=== PATIENT | female | born 1950 | race Caucasian/White ===

== ENCOUNTER → 2017-07-17 | Day surgery (SDC) | payer OTHER ==
[~2017-07-17] VITALS: Ht 161.3 cm; Wt 71.0 kg
[~2017-07-17] MED LIST: *morphine SULFATE 8 MG/ML PERIprocedure ONLY ONE; ALLO300T2 PO; CARV6.252 PO; CARVEDILOL 6.25 MG TAB PO ONE; CHLORHEXIDINE GLUCONATE 2 % 1 PACK (2 CLOTHS) TOPICAL PRN; DEXAMETHASONE SOD PHOS 4 MG/ML VIAL IV ONE; DO NOT ADM ANY ANTICOAGULANT DRUGS PRN; INSULIN HUMAN REGULAR 1,000 UNITS/10 ML VIAL SQ PRN; KETOROLAC TROMETHAMINE 30 MG/ML (IVP) VIAL IV PUSH PRN; LACTATED RINGER'S 1000 ML IV PRN; LIDOCAINE 1%/EPINEPHrine 1:100,000 SOLN 50 ML VIAL ONE; LIDOCAINE HCL 1% PF 5 ML SYRINGE OTHER ONE; LISI10TA3 PO; METF1000 PO; METOPROLOL TARTRATE 25 MG TAB PO PRN; MIDAZOLAM HCL 2 MG/2 ML VIAL IV ONE; MULT1TAB46 PO; NOVOLOGP2 SQ; ONDANSETRON HCL 4 MG/2 ML VIAL IV PUSH ONE; OXYB5TAB8 PO; POVIDONE IODINE 5% (ANTISEPSIS KIT) 4 APPLICATIONS EACH NARE PRN; PROPOFOL 200 MG/20 ML AMP IV ONE; SODIUM CHLORID 0.9% 500 ML IV PRN
[2017-07-17 10:17] VITALS: BP 120/59; PULSE 74; RESP 18; TEMP 97.5; O2SAT 95
--- NOTE | 2017-07-17 22:05 | MP ---
cc: CLEMENTINA DEVRIES MD, KELLY L. MD BROOKS,TING Otero M.D. DATE OF SURGERY: 07/17/2017 PREOPERATIVE DIAGNOSIS: 1. Vulvar mass suspicious for malignancy. 2. Extensive groin and pelvic adenopathy bilateral. POSTOPERATIVE DIAGNOSIS 1. 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 2. Extensive bilateral groin and pelvic adenopathy. PROCEDURE Examination under anesthesia, multiple vulvar biopsies, cystoscopy. SURGEON Radha Reeves MD. SENIOR ELECT[employer]ICS ENGINEER [place] bilingual office assistant. ANESTHESIA: Laryngeal mask anesthesia ESTIMATED BLOOD LOSS 20 cc HISTORY This is a 67-year-old female, who was recently referred to us after presenting to her caregivers with a mass-like effect on the vulva. The clinical evaluation suggested this was fairly advanced malignancy, although no biopsies were taken. CT scan imaging was obtained which showed an exophytic and necrotic mass which was consistent with clinical findings and also showed bilateral significant groin adenopathy as well as suspicious pelvic adenopathy. She was seen where she was counseled in conjunction with her family in the office and we scheduled her for this procedure today recommending exam under anesthesia. She is seen again in the preop holding area where findings are again reviewed. The objective is to clarify the diagnosis and to make treatment recommendations were reviewed. Questions were answered. She expressed good understanding and agreed. FINDINGS On exam under anesthesia there is appreciably enlarged lymph nodes in both groins, the largest of which is 4 cm palpable on the left side, 2 cm is the largest palpable lymph node on the right side. Almost the entire right vulva is replaced with an exophytic mass that is with central ulceration. It is at least 8 cm in greatest dimension. It extends clockwise from the 7 o'clock position on the right vulva were it replaces all of the right vulva and extends into the distal right vagina. It carries across the midline where it has replaced the clitoris and surrounding tissue with necrotic tumor and extended over to the left vulva where the tumor is smaller but nonetheless extends across the midline and down to the 2 o'clock position. The tumor ventrally extends to within approximately 1 cm of the urethra and continues towards the mons pubis centrally. The posterior vagina, anus and rectum are without visible or palpable abnormality on exam. There are some external hemorrhoids. On cystoscopy the bladder mucosa appears normal circumferentially. There is good efflux of urine through the ureteral ostia bilaterally. There is no mass or nodularity and no significant distortion to the bladder. Biopsies are obtained. Frozen section confirms clinical suspicion that this is an invasive squamous cell carcinoma and appears to be arising from the vulva. Additional findings forthcoming and is that she is scheduled for a PET CT scan which has not yet been obtained. This will also allow imaging of the lungs and elsewhere. PROCEDURE She was taken to the operating room placed in dorsal lithotomy position. After laryngeal mask anesthesia was administered time-out was undertaken. She was identified by sight, recognition and hospital ID pola, and the proposed procedure was reviewed and confirmed. Exam under anesthesia was performed with findings as described, after laryngeal mask anesthesia had been administered. Subsequently she was prepped and draped in sterile fashion, 3 mm punch biopsies were used to obtain multifocal biopsies from the left and right vulva, a sampling of which were sent for frozen section analysis, and additional biopsies were obtained for permanent analysis. The biopsy sites were rendered hemostatic with topical Monsel's solution. Cystoscopy was performed using a 30 degrees scope with findings as described above. The bladder was drained. Rectovaginal exam was performed with findings as described above. Proctosigmoidoscopy was not felt to be necessary given that the tumor was in no immediate her close proximity to the anus or rectum. A change of sterile gloves was undertaken. All sites were noted be hemostatic. Pelvic exam confirmed that there were no remaining foreign objects in the vagina and final counts were correct. She was returned to dorsal supine position and was pending reversal of anesthesia when I left the operating room to precede her to the Post Anesthesia Care Unit. MD VENKAT Campbell/QUE /12:35 PM /9:59 PM
== END | disposition home or self-care (01) ==
LOC: HSDC 05:13
PROVIDERS: ATTEND Obstetrics & Gynecology Gynecologic Oncology
DX: C51.9 Malignant neoplasm of vulva, unspecified (principal); R59.9 Enlarged lymph nodes, unspecified; E11.9 Type 2 diabetes mellitus without complications; M10.9 Gout, unspecified; Z79.84 Long term (current) use of oral hypoglycemic drugs
CPT/HCPCS: 00400; 56605; 56606; 82948; 86850; 86900; 86901; 88305; 88331; J1100; J2250; J2270; J2405; J3010; J7120

== ENCOUNTER 2017-10-25 10:40 | Inpatient (IN) | payer OTHER, MEDICARE ==
[2017-10-25] VITALS (7 sets, daily range): BP systolic 115–138; BP diastolic 57–69; PULSE 84–100; RESP 14–18; TEMP 97.9–98.7; O2SAT 96–100
[~2017-10-25] VITALS: Ht 167.6 cm; Wt 60.0 kg
[~2017-10-25 10:40] MED LIST changes: -*morphine SULFATE 8 MG/ML PERIprocedure ONLY ONE; -CARVEDILOL 6.25 MG TAB PO ONE; -CHLORHEXIDINE GLUCONATE 2 % 1 PACK (2 CLOTHS) TOPICAL PRN; -DEXAMETHASONE SOD PHOS 4 MG/ML VIAL IV ONE; -DO NOT ADM ANY ANTICOAGULANT DRUGS PRN; -INSULIN HUMAN REGULAR 1,000 UNITS/10 ML VIAL SQ PRN; -KETOROLAC TROMETHAMINE 30 MG/ML (IVP) VIAL IV PUSH PRN; -LACTATED RINGER'S 1000 ML IV PRN; -LIDOCAINE 1%/EPINEPHrine 1:100,000 SOLN 50 ML VIAL ONE; -LIDOCAINE HCL 1% PF 5 ML SYRINGE OTHER ONE; -METOPROLOL TARTRATE 25 MG TAB PO PRN; -MIDAZOLAM HCL 2 MG/2 ML VIAL IV ONE; -ONDANSETRON HCL 4 MG/2 ML VIAL IV PUSH ONE; -POVIDONE IODINE 5% (ANTISEPSIS KIT) 4 APPLICATIONS EACH NARE PRN; -PROPOFOL 200 MG/20 ML AMP IV ONE; -SODIUM CHLORID 0.9% 500 ML IV PRN
[2017-10-25] MEDS ORDERED: LEVA750T9 PO (11:27)
--- NOTE | 2017-10-25 11:28 | PD ---
HPI Chief Complaint: Respiratory Symptoms Time Seen by Provider: 11:23 Travel History International Travel<30 days: No Contact w/Intl Traveler<30days: No Traveled to known affect area: No History of Present Illness HPI 67-year-old female patient with a history of vulvar cancer currently following up with Dr. Reeves, here with 3 weeks of shortness of breath, sent in by the office. She denies any fevers, coughing, or other symptoms. Modifying Factors: None Associated Signs & Symptoms: 3 weeks of shortness of breath Risk Factors: Cancer PFSH Past Medical History Cancer: Yes (possibly working up) Cardiovascular Problems: Yes Chemotherapy: Yes Endocrine: No Genitourinary: No Hepatitis: No Hiatal Hernia: No Hypertension: Yes Immune Disorder: No Musculoskeletal: Yes Neurologic: No Psychiatric: Yes Respiratory: No Thyroid Disease: No Tetanus Vaccination: Unknown Influenza Vaccination: No ?: Past Surgical History Body Medical Devices: clamp and screw in neck and plate in neck Cardiac Surgery: Yes (heart cath) Ear Surgery: No Endocrine Surgery: No Eye Surgery: No Genitourinary Surgery: Yes (kidney stone removal) Gynecologic Surgery: Yes (hysterectomy) Hysterectomy: Yes Neurologic Surgery: Yes (cervical laminectomy c123) Oral Surgery: No Other Surgery: Yes Social History Alcohol Use: No Tobacco Use: No Substance Use: No Allergies-Medications (Allergen,Severity, Reaction): Coded Allergies: Penicillins (Verified Allergy, Severe, rash/hives, 10/25/17) Sulfa (Sulfonamide Antibiotics) (Verified Allergy, Severe, rash/hives, ) codeine (Verified Allergy, Severe, rash, 10/25/17) tramadol (Verified Allergy, Severe, itch/legs numb and she fell, 10/25/17) Reported Meds & Prescriptions Reported Meds & Active Scripts Active Reported Alprazolam 0.5 Mg Tab 0.5 Mg PO Q6H PRN Levaquin (Levofloxacin) 750 Mg Tablet 750 Mg PO DAILY Allopurinol 300 Mg Tab 450 Mg PO DAILY Carvedilol 6.25 Mg Tab 6.25 Mg PO BID Metformin (Metformin HCl) 1,000 Mg Tab 1,000 Mg PO BIDPC Novolog Inj (Insulin Aspart) 1,000 Unit/10 Ml Vial Units SQ TID SLIDING SCALE DIRECTED Review of Systems Except as stated in HPI: all other systems reviewed are Neg Physical Exam Narrative GENERAL: Elderly female patient who is well-developed, in moderate respiratory distress. Awake and oriented 3. SKIN: Focused skin assessment warm/dry. HEAD: Atraumatic. Normocephalic. EYES: Pupils equal and round. No scleral icterus. No injection or drainage. ENT: No nasal bleeding or discharge. Mucous membranes pink and moist. NECK: Trachea midline. No JVD. Supple. CARDIOVASCULAR: Regular rate and rhythm. No murmur appreciated. RESPIRATORY: Mild accessory muscle use. Clear to auscultation. Breath sounds equal bilaterally. GASTROINTESTINAL: Abdomen soft, non-tender, nondistended. Hepatic and splenic margins not palpable. MUSCULOSKELETAL: No obvious deformities. No clubbing. No cyanosis. No edema. NEUROLOGICAL: Awake and alert. No obvious cranial nerve deficits. Motor grossly within normal limits. Normal speech. PSYCHIATRIC: Appropriate mood and affect; insight and judgment normal. Data Data Last Documented VS Vital Signs Date Time Temp Pulse Resp B/P (MAP) Pulse Ox O2 Delivery O2 Flow Rate FiO2 10/25/17 15:09 89 18 128/61 (83) 97 Room Air 10/25/17 10:42 97.9 Orders Orders Complete Blood Count With Diff (10/25/17 11:23) Comprehensive Metabolic Panel (10/25/17 11:23) B-Type Natriuretic Peptide (10/25/17 11:23) Act Partial Throm Time (Ptt) (10/25/17 11:23) Prothrombin Time / Inr (Pt) (10/25/17 11:23) Magnesium (Mg) (10/25/17 11:23) Iv Access Insert/Monitor (10/25/17 11:23) Electrocardiogram (10/25/17 11:23) Ecg Monitoring (10/25/17 11:23) Oximetry (10/25/17 11:23) Oxygen Administration (10/25/17 11:23) Chest, Single Ap (10/25/17 11:23) Sodium Chloride 0.9% Flush (Ns Flush) (10/25/17 11:30) Dextrose 50% In Sumeet (Syr) Inj (D50w (Syr (10/25/17 12:15) Ventilation & Perfusion Scan (10/25/17 12:26) Sepsis Workup Initiated (10/25/17 ) Lactic Acid Sepsis Protocol (10/25/17 14:41) Blood Culture (10/25/17 14:41) Cefepime Inj (Maxipime Inj) (10/25/17 14:41) Admit Order (Ed Use Only) (10/25/17 15:28) Labs Laboratory Tests Test 10/25/17 11:35 10/25/17 14:45 White Blood Count 7.1 TH/MM3 Red Blood Count 2.96 MIL/MM3 Hemoglobin 8.5 GM/DL Hematocrit 24.3 % Mean Corpuscular Volume 81.9 FL Mean Corpuscular Hemoglobin 28.5 PG Mean Corpuscular Hemoglobin Concent 34.8 % Red Cell Distribution Width 25.9 % Platelet Count 253 TH/MM3 Mean Platelet Volume 7.1 FL Neutrophils (%) (Auto) 77.0 % Lymphocytes (%) (Auto) 9.8 % Monocytes (%) (Auto) 11.7 % Eosinophils (%) (Auto) 1.0 % Basophils (%) (Auto) 0.5 % Neutrophils # (Auto) 5.4 TH/MM3 Lymphocytes # (Auto) 0.7 TH/MM3 Monocytes # (Auto) 0.8 TH/MM3 Eosinophils # (Auto) 0.1 TH/MM3 Basophils # (Auto) 0.0 TH/MM3 CBC Comment AUTO DIFF Differential Total Cells Counted 100 Neutrophils % (Manual) 73 % Band Neutrophils % 3 % Lymphocytes % 10 % Monocytes % 12 % Neutrophils # (Manual) 5.5 TH/MM3 Myelocytes 2 % Differential Comment FINAL DIFF MANUAL Platelet Estimate NORMAL Platelet Morphology Comment NORMAL Prothrombin Time 11.4 SEC Prothromb Time International Ratio 1.1 RATIO Activated Partial Thromboplast Time 27.7 SEC Blood Urea Nitrogen 25 MG/DL Creatinine 1.97 MG/DL Random Glucose 60 MG/DL Total Protein 8.0 GM/DL Albumin 3.0 GM/DL Calcium Level 9.4 MG/DL Magnesium Level 1.7 MG/DL Alkaline Phosphatase 85 U/L Aspartate Amino Transf (AST/SGOT) 6 U/L Alanine Aminotransferase (ALT/SGPT) 7 U/L Total Bilirubin 0.3 MG/DL Sodium Level 134 MEQ/L Potassium Level 4.2 MEQ/L Chloride Level 103 MEQ/L Carbon Dioxide Level 22.2 MEQ/L Anion Gap 9 MEQ/L Estimat Glomerular Filtration Rate 25 ML/MIN B-Type Natriuretic Peptide 29 PG/ML MDM Medical Decision Making Medical Screen Exam Complete: Yes Emergency Medical Condition: Yes Medical Record Reviewed: Yes Interpretation(s) EKG shows normal sinus rhythm at a rate of 96 beats per minutes with no signs of acute ST changes. Laboratory Tests Test 10/25/17 11:35 10/25/17 14:45 Red Blood Count 2.96 MIL/MM3 (4.00-5.30) Hemoglobin 8.5 GM/DL (11.6-15.3) Hematocrit 24.3 % (35.0-46.0) Red Cell Distribution Width 25.9 % (11.6-17.2) Neutrophils (%) (Auto) 77.0 % (16.0-70.0) Monocytes (%) (Auto) 11.7 % (0.0-8.0) Lymphocytes # (Auto) 0.7 TH/MM3 (1.0-4.8) Neutrophils % (Manual) 73 % (16-70) Monocytes % 12 % (0-8) Myelocytes 2 % (0-0) Blood Urea Nitrogen 25 MG/DL (7-18) Creatinine 1.97 MG/DL (0.50-1.00) Random Glucose 60 MG/DL (74-106) Albumin 3.0 GM/DL (3.4-5.0) Aspartate Amino Transf (AST/SGOT) 6 U/L (15-37) Alanine Aminotransferase (ALT/SGPT) 7 U/L (10-53) Sodium Level 134 MEQ/L (136-145) Estimat Glomerular Filtration Rate 25 ML/MIN (>89) Last 24 hours Impressions Lung Scan-[facility] Nuclear Medicine 10/25/17 1226 Signed Impressions: Service Date/Time: Wednesday, October 25, 2017 14:01 - CONCLUSION: Low probability for pulmonary embolism Mika zSymanski MD FACR Chest X-Ray 10/25/17 1123 Signed Impressions: Service Date/Time: Wednesday, October 25, 2017 11:36 - CONCLUSION: Left basilar opacity likely representing small pleural effusion with associated atelectasis and/or airspace consolidation. Trey Blair MD Differential Diagnosis Shortness of breath: Pneumonia versus CHF versus PE Narrative Course Chest x-ray did not show any signs of obvious lobar pneumonia. She did have a left sided atelectasis. VQ scan is unremarkable for PE. Lab work shows UTI. She was on Levaquin for the past week already and there is concern that she may have failed outpatient therapy. IV antibiotics were initiated after cultures were drawn. At this point, plan would be to admit her for further treatment. Case is discussed with Dr. Figueroa for admission. Sepsis Criteria SIRS Criteria (2 or more): Heart rate over 90 Sepsis Criteria (SIRS+source): Infect source susp/known Severe Sepsis (+one): Hypotension, Acute Oliguria/Renal Failure Diagnosis Primary Impression: UTI (urinary tract infection) Additional Impression: Systemic inflammatory response syndrome (SIRS) due to infection Admitting Information Admitting Physician Requests: Admit Marilynn Vieira MD Oct 25, 2017 11:28
[2017-10-25] MEDS ORDERED: SODIUM CHLORIDE 0.9% FLUSH 10 ML FLUSH IVF PRN (11:30)
[2017-10-25] MEDS ORDERED: ALPR0.5T3 PO (11:33)
[2017-10-25 11:57] LABS: AUTOMATED NEUTROPHIL # 5.4 TH/MM3 (1.8-7.7); BASOPHIL % 0.5 % (0.0-2.0); EOSINOPHIL # 0.1 TH/MM3 (0-0.4); HEMATOCRIT 24.3 % (35.0-46.0); HEMOGLOBIN 8.5 GM/DL (11.6-15.3); LYMPH % 9.8 % (9.0-44.0); LYMPHOCYTE # 0.7 TH/MM3 (1.0-4.8); MEAN CELL VOLUME 81.9 FL (80.0-100.0); MEAN CORPUSCULAR HEMOGLOBIN 28.5 PG (27.0-34.0); MEAN CORPUSCULAR HGB CONC 34.8 % (32.0-36.0); MEAN PLATELET VOLUME 7.1 FL (7.0-11.0); MONO % 11.7 % (0.0-8.0); MONOCYTE # 0.8 TH/MM3 (0-0.9); PLATELET COUNT 253 TH/MM3 (150-450); RED BLOOD COUNT 2.96 MIL/MM3 (4.00-5.30); RED CELL DISTRIBUTION WIDTH 25.9 % (11.6-17.2); WHITE BLOOD COUNT 7.1 TH/MM3 (4.0-11.0)
[2017-10-25 12:04] LABS: INTERNATIONAL NORMALIZED RATIO 1.1 RATIO; PROTHROMBIN TIME - PATIENT 11.4 SEC (9.8-11.6)
--- NOTE | 2017-10-25 12:04 | RADRPT ---
EXAM DATE/TIME: 10/25/2017 11:36 [facility] COMPARISON: No previous studies available for comparison. INDICATIONS : Short of breath. MEDICAL HISTORY : vulva cancer, hx of fluid around heart 6-7- yrs ago SURGICAL HISTORY : treatment for vulva cancer ENCOUNTER: Initial ACUITY: 1 month PAIN SCORE: 0/10 LOCATION: Bilateral chest FINDINGS: Portable AP view of the chest demonstrates a normal-sized cardiac silhouette. Right chest wall Infuse -a-Port is present with distal tip in the superior vena cava. There is a left basilar pleural-parench ymal opacity. No pneumothorax is identified. Bones demonstrate no acute finding. CONCLUSION: Left basilar opacity likely representing small pleural effusion with associated atelectasis and/or ai rspace consolidation. Trey Blair MD on October 25, 2017 at 12:01 Board Certified Radiologist. This report was verified electronically.
[2017-10-25] MEDS ORDERED: DEXTROSE 50% IN WATER 50 ML SYRINGE IV PUSH ONE (12:15)
[2017-10-25 12:20] LABS: AST (GOT) 6 U/L (15-37); BICARBONATE 22.2 MEQ/L (21.0-32.0); BLOOD UREA NITROGEN 25 MG/DL (7-18); CALCIUM 9.4 MG/DL (8.5-10.1); CHLORIDE 103 MEQ/L (98-107); CREATININE 1.97 MG/DL (0.50-1.00); GLOMERULAR FILTRATION RATE 25 ML/MIN (>89); GLUCOSE,RANDOM 60 MG/DL (74-106); MAGNESIUM 1.7 MG/DL (1.5-2.5); SODIUM (NA) 134 MEQ/L (136-145)
[2017-10-25 12:24] LABS: ALKALINE PHOSPHATASE 85 U/L (45-117); ALT (GPT) 7 U/L (10-53); TOTAL BILIRUBIN ADULT 0.3 MG/DL (0.2-1.0)
[2017-10-25 12:58] LABS: BANDS 3 % (0-6); LYMPHOCYTES 10 % (9-44); MONOCYTES 12 % (0-8); MYELOCYTES 2 % (0-0); NEUTROPHIL # MANUAL DIFF 5.5 TH/MM3 (1.8-7.7); POLYS (SEG NEUTROPHILS) 73 % (16-70)
--- NOTE | 2017-10-25 14:37 | RADRPT ---
EXAM DATE/TIME: 10/25/2017 14:01 [facility] COMPARISON: No previous studies available for comparison. INDICATIONS : Dyspnea for three days. DOSE: 8.5 mCi Tc99m MAA IV 1.2 mCi Tc99m DTPA aerosol MEDICAL HISTORY : Hypertension. Vulvar cancer. SURGICAL HISTORY : Hysterectomy. Fusion, cervical. ENCOUNTER: Initial ACUITY: 1 day PAIN SCALE: 0/10 LOCATION: chest TECHNIQUE: Following five minutes of tidal breathing of DTPA aerosol, planar images of the lungs were performed in eight projections. The patient was then injected with MAA, and eight-view perfusio n scan was performed. FINDINGS: There is a homogeneous pattern of aerosol delivery to the periphery of both lungs. No focal ventilat ory defects are seen. The perfusion lung scan demonstrates a homogenous pattern of uptake in both lungs. No segmental or s ubsegmental defects are seen. CONCLUSION: Low probability for pulmonary embolism Mika Szymanski MD FACR on October 25, 2017 at 14:34 Board Certified Radiologist. This report was verified electronically.
[2017-10-25] MEDS ORDERED: CEFEPIME INJ 2,000 MG in SODIUM CHLORIDE 0.9% INJ 100 ML IV STA (14:41)
[2017-10-25] MEDS ORDERED: MAGNESIUM HYDROXIDE SUSP 30 ML CUP PO PRN (15:45)
[2017-10-25] MEDS ORDERED: NALOXONE HCL 0.4 MG/ML AMP IV PUSH PRN (15:45)
[2017-10-25] MEDS ORDERED: SENNOSIDES 8.6 MG TAB PO PRN (15:45)
[2017-10-25] MEDS ORDERED: ONDANSETRON HCL 4 MG/2 ML VIAL IVP PRN (15:45)
[2017-10-25] MEDS ORDERED: LACTULOSE SYRUP 20 GM/30 ML CUP PO PRN (15:45)
[2017-10-25] MEDS ORDERED: ALPRAZolam 0.5 MG TAB PO PRN (15:45)
[2017-10-25] MEDS ORDERED: SODIUM CHLORIDE 0.9% FLUSH 10 ML FLUSH IV FLUSH PRN (15:45)
[2017-10-25] MEDS ORDERED: BISACODYL 10 MG SUPP RECTAL PRN (15:45)
[2017-10-25] MEDS ORDERED: ACETAMINOPHEN 325 MG TAB PO PRN (15:45)
[2017-10-25 15:48] LABS: LACTIC ACID SEPSIS PROTOCOL 2.7 mmol/L (0.4-2.0)
[2017-10-25] MEDS: SODIUM CHLOR 0.9% 1000 ML INJ 1,000 ML IV SCH (16:34)
[2017-10-25] MEDS ORDERED: DEXTROSE 50% IN WATER 50 ML VIAL(D50) IV PUSH PRN (16:45)
[2017-10-25] MEDS ORDERED: GLUCAGON 1 MG/ML VIAL OTHER PRN (16:45)
--- NOTE | 2017-10-25 16:49 | HHI.HP ---
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 Reeves. Patient reports for the past 3 weeks she has been very fatigued, short of breath with minimal activity. She reports that her symptoms seems to have all started after she was switched from cisplatin to carboplatin. Apparently she had worsening renal functions with cisplatin. Over the past few weeks, the patient has been treated multiple times for urinary tract infections. She was in fact on Levaquin prior to presenting today. Workup in the emergency room here is concerning for persistent UTI despite outpatient antibiotics. Currently the patient denies any episodes of fevers or chills. She denies dysuria or suprapubic pain. She does report a feeling of generalized malaise and pain all over. Further discussion with her daughter revealed she has a poor appetite and has been more sedentary lately. Review of Systems Constitutional: COMPLAINS OF: Fatigue, Change in appetite Respiratory: COMPLAINS OF: Sputum production, Shortness of breath, DENIES: Cough, Wheezing Cardiovascular: COMPLAINS OF: Dyspnea on Exertion, DENIES: Chest pain, Palpitations, Lower Extremity Edema Gastrointestinal: COMPLAINS OF: Anorexia, DENIES: Abdominal pain, Black stools , Bloody stools Genitourinary: DENIES: Urinary frequency, Urgency, Dysuria Musculoskeletal: COMPLAINS OF: Joint pain, Muscle aches Except as stated in HPI: all other systems reviewed are Neg Past Family Social History Past Medical History type II diabetes, gout, CKD, kidney stones, 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 and currently undergoing chemotherapy Hypertension Past Surgical History Hysterectomy in 1985 Cervical laminectomy with removal of tumor Plates in c- spine Past Medical History Cancer: Yes (possibly working up) Cardiovascular Problems: Yes Chemotherapy: Yes Endocrine: No Genitourinary: No Hepatitis: No Hiatal Hernia: No Hypertension: Yes Immune Disorder: No Musculoskeletal: Yes Neurologic: No Psychiatric: Yes Respiratory: No Thyroid Disease: No Tetanus Vaccination: Unknown Influenza Vaccination: No ?: Past Surgical History Body Medical Devices: clamp and screw in neck and plate in neck Cardiac Surgery: Yes (heart cath) Ear Surgery: No Endocrine Surgery: No Eye Surgery: No Genitourinary Surgery: Yes (kidney stone removal) Gynecologic Surgery: Yes (hysterectomy) Hysterectomy: Yes Neurologic Surgery: Yes (cervical laminectomy c123) Oral Surgery: No Reported Medications Reported Meds & Active Scripts Active Reported Alprazolam 0.5 Mg Tab 0.5 Mg PO Q6H PRN Levaquin (Levofloxacin) 750 Mg Tablet 750 Mg PO DAILY Allopurinol 300 Mg Tab 450 Mg PO DAILY Carvedilol 6.25 Mg Tab 6.25 Mg PO BID Metformin (Metformin HCl) 1,000 Mg Tab 1,000 Mg PO BIDPC Novolog Inj (Insulin Aspart) 1,000 Unit/10 Ml Vial Units SQ TID SLIDING SCALE DIRECTED Allergies: Coded Allergies: Penicillins (Verified Allergy, Severe, rash/hives, 10/25/17) Sulfa (Sulfonamide Antibiotics) (Verified Allergy, Severe, rash/hives, ) codeine (Verified Allergy, Severe, rash, 10/25/17) tramadol (Verified Allergy, Severe, itch/legs numb and she fell, 10/25/17) Family History Reviewed and found to be noncontributory. Social History No tobacco or alcohol Physical Exam Vital Signs Vital Signs Date Time Temp Pulse Resp B/P (MAP) Pulse Ox O2 Delivery O2 Flow Rate FiO2 10/25/17 16:42 91 122/65 (84) 98 10/25/17 16:42 10/25/17 15:09 89 18 128/61 (83) 97 Room Air 10/25/17 14:33 87 14 138/60 (86) 98 10/25/17 12:19 89 16 135/69 (91) 98 10/25/17 10:42 97.9 100 18 115/57 (76) 100 Physical Exam GENERAL: Chronically ill-appearing elderly female SKIN: Left anterior thigh there is a small papule. No surrounding erythema. HEAD: Atraumatic. Normocephalic. No temporal or scalp tenderness. EYES: Pupils equal round and reactive. Extraocular motions intact. No scleral icterus. No injection or drainage. ENT: Nose without bleeding, purulent drainage or septal hematoma. Throat without erythema, tonsillar hypertrophy or exudate. Uvula midline. Airway patent. NECK: Trachea midline. No JVD or lymphadenopathy. Supple, nontender, no meningeal signs. CARDIOVASCULAR: Regular rate and rhythm without murmurs, gallops, or rubs. RESPIRATORY: Diminished breath sounds at the bases bilaterally otherwise clear to auscultation. Breath sounds equal bilaterally. No wheezes, rales, or rhonchi. GASTROINTESTINAL: Abdomen soft, non-tender, nondistended. No hepato-splenomegaly , or palpable masses. No guarding. MUSCULOSKELETAL: Extremities without clubbing, cyanosis, or edema. No joint tenderness, effusion, or edema noted. No calf tenderness. Negative Homans sign bilaterally. NEUROLOGICAL: Awake and alert. Cranial nerves II through XII intact. Generalized weakness. Laboratory Laboratory Tests Test 10/25/17 11:35 10/25/17 14:45 White Blood Count 7.1 Red Blood Count 2.96 Hemoglobin 8.5 Hematocrit 24.3 Mean Corpuscular Volume 81.9 Mean Corpuscular Hemoglobin 28.5 Mean Corpuscular Hemoglobin Concent 34.8 Red Cell Distribution Width 25.9 Platelet Count 253 Mean Platelet Volume 7.1 Neutrophils (%) (Auto) 77.0 Lymphocytes (%) (Auto) 9.8 Monocytes (%) (Auto) 11.7 Eosinophils (%) (Auto) 1.0 Basophils (%) (Auto) 0.5 Neutrophils # (Auto) 5.4 Lymphocytes # (Auto) 0.7 Monocytes # (Auto) 0.8 Eosinophils # (Auto) 0.1 Basophils # (Auto) 0.0 CBC Comment AUTO DIFF Differential Total Cells Counted 100 Neutrophils % (Manual) 73 Band Neutrophils % 3 Lymphocytes % 10 Monocytes % 12 Neutrophils # (Manual) 5.5 Myelocytes 2 Differential Comment FINAL DIFF MANUAL Platelet Estimate NORMAL Platelet Morphology Comment NORMAL Prothrombin Time 11.4 Prothromb Time International Ratio 1.1 Activated Partial Thromboplast Time 27.7 Blood Urea Nitrogen 25 Creatinine 1.97 Random Glucose 60 Total Protein 8.0 Albumin 3.0 Calcium Level 9.4 Magnesium Level 1.7 Alkaline Phosphatase 85 Aspartate Amino Transf (AST/SGOT) 6 Alanine Aminotransferase (ALT/SGPT) 7 Total Bilirubin 0.3 Sodium Level 134 Potassium Level 4.2 Chloride Level 103 Carbon Dioxide Level 22.2 Anion Gap 9 Estimat Glomerular Filtration Rate 25 B-Type Natriuretic Peptide 29 Lactic Acid Level 2.7 Date/Time Source Procedure Growth Status 10/25/17 14:50 Blood Peripheral Aerobic Blood Culture Pending Received 10/25/17 14:50 Blood Peripheral Anaerobic Blood Culture Pending Received Result Diagram: 10/25/17 1135 10/25/17 1135 Imaging Last Impressions Lung Scan-VQ Nuclear Medicine 10/25/17 1226 Signed Impressions: Service Date/Time: Wednesday, October 25, 2017 14:01 - CONCLUSION: Low probability for pulmonary embolism Mika Szymanski MD FACR Chest X-Ray 10/25/17 1123 Signed Impressions: Service Date/Time: Wednesday, October 25, 2017 11:36 - CONCLUSION: Left basilar opacity likely representing small pleural effusion with associated atelectasis and/or airspace consolidation. Trey Blair MD [place] VTE Risk Assessment Caprini VTE Risk Assessment: Mod/High Risk (score >= 2) Caprini Risk Assessment Model Point Value = 1 Point Value = 2 Point Value = 3 Point Value = 5 Age 41-60 Minor surgery BMI > 25 kg/m2 Swollen legs Varicose veins or History of unexplained or recurrent spontaneous Oral contraceptives or hormone replacement Sepsis (< 1 month) Serious lung disease, including pneumonia (< 1 month) Abnormal pulmonary function Acute myocardial infarction Congestive heart failure (< 1 month) History of inflammatory bowel disease Medical patient at bed rest Age 61-74 Arthroscopic surgery Major open surgery (> 45 min) Laparoscopic surgery (> 45 min) Malignancy Confined to bed (> 72 hours) Immobilizing plaster cast Central venous access Age >= 75 History of VTE Family history of VTE Factor V Leiden Prothrombin [id number] Lupus anticoagulant Anticardiolipin antibodies Elevated serum homocysteine Heparin-induced thrombocytopenia Other congenital or acquired thrombophilia Stroke (< 1 month) Elective arthroplasty Hip, pelvis, or leg fracture Acute spinal cord injury (< 1 month) Prophylaxis Regimen Total Risk Factor Score Risk Level Prophylaxis Regimen 0-1 Low Early ambulation 2 Moderate Order ONE of the following: *Sequential Compression Device (SCD) *Heparin 5000 units SQ BID 3-4 Higher Order ONE of the following medications: *Heparin 5000 units SQ TID *Enoxaparin/Lovenox 40 mg SQ daily (WT < 150 kg, CrCl > 30 mL/min) *Enoxaparin/Lovenox 30 mg SQ daily (WT < 150 kg, CrCl > 10-29 mL/min) *Enoxaparin/Lovenox 30 mg SQ BID (WT < 150 kg, CrCl > 30 mL/min) AND/OR *Sequential Compression Device (SCD) 5 or more Highest Order ONE of the following medications: *Heparin 5000 units SQ TID (Preferred with Epidurals) *Enoxaparin/Lovenox 40 mg SQ daily (WT < 150 kg, CrCl > 30 mL/min) *Enoxaparin/Lovenox 30 mg SQ daily (WT < 150 kg, CrCl > 10-29 mL/min) *Enoxaparin/Lovenox 30 mg SQ BID (WT < 150 kg, CrCl > 30 mL/min) AND *Sequential Compression Device (SCD) Assessment and Plan Problem List: (1) Recurrent UTI ICD Code: N39.0 - Urinary tract infection, site not specified Plan: She failed outpatient therapy. Has been on Macrobid and Levaquin outpatient. Urinalysis consistent with persistent UTI. Continue cefepime. Follow urine cultures. (2) Hypertension ICD Code: I10 - Essential (primary) hypertension Plan: Controlled. Continue Coreg. (3) Squamous cell carcinoma of vulva ICD Code: C51.9 - Malignant neoplasm of vulva, unspecified Plan: Patient previously had radiation. Currently on carbo Posten. She was previously on cisplatin. This was discontinued due to nephrotoxicity. Consult the patient's CHIROPRACTIC PHYSICIAN [employer], Dr. Reeves for assistance. Unclear if current debilitated status is related to chemotherapy side effects. Patient indicates Dr. Reeves wanted further imaging. We will defer further workup to CHIROPRACTIC PHYSICIAN oncology. (4) Diabetes ICD Code: E11.9 - Type 2 diabetes mellitus without complications Plan: Continue sliding scale insulin with Accu-Cheks. (5) Gout ICD Code: M10.9 - Gout, unspecified Plan: Continue allopurinol (6) Debility ICD Code: R53.81 - Other malaise Plan: May be secondary to chemotherapy side effect.? UTI. - Physical therapy consult (7) Dyspnea on exertion ICD Code: R06.09 - Other forms of dyspnea Plan: Based on the history, it sounds more like debility and deconditioning. Physical therapy assessment. Given history of hypertension and chemotherapy, obtain 2D echocardiogram. It is worth noting that BNP (8) Anemia ICD Code: D64.9 - Anemia, unspecified Plan: Likely secondary to chronic disease. Patient reports a history of blood transfusion a few weeks ago. Hemoglobin was reportedly around 6 at that time. H& H stable today. Continue to follow CBC.. Discussed Condition With Dr. Holcomb, ER physician. Physician Certification 2 Midnight Certification Type: Admission for Inpatient Services Order for Inpatient Services The services are ordered in accordance with Medicare regulations or non- Medicare payer requirements, as applicable. In the case of services not specified as inpatient-only, they are appropriately provided as inpatient services in accordance with the 2-midnight benchmark. Estimated LOS (days): 3 days is the estimated time the patient will need to remain in the hospital, assuming treatment plan goals are met and no additional complications. Post-Hospital Plan: Not yet determined Rowdy Rainey MD Oct 25, 2017 16:49
[2017-10-25] MEDS: INSULIN ASPART SUPPLEMENTAL SCALE SQ SCH ×2 (18:42→21:00)
[2017-10-25] MEDS: SODIUM CHLORIDE 0.9% FLUSH 10 ML FLUSH IV FLUSH SCH (21:00)
[2017-10-25] MEDS: KETOROLAC TROMETHAMINE 10 MG TAB PO PRN (22:26)
[2017-10-25] MEDS: CARVEDILOL 6.25 MG TAB PO SCH (22:26)
[2017-10-26] MEDS: SODIUM CHLOR 0.9% 1000 ML INJ 1,000 ML IV SCH ×3 (01:09→23:23)
[2017-10-26 04:10] VITALS: BP 134/61; PULSE 81; RESP 14; TEMP 98.3; O2SAT 96
[2017-10-26 07:32] VITALS: BP 141/63; PULSE 84; RESP 16; TEMP 98.3; O2SAT 99
[2017-10-26] MEDS: INSULIN ASPART SUPPLEMENTAL SCALE SQ SCH ×4 (08:33→21:19)
[2017-10-26] MEDS ORDERED: CEFEPIME INJ 1,000 MG in SODIUM CHLORIDE 0.9% INJ 100 ML IV SCH (09:00)
[2017-10-26] MEDS: CARVEDILOL 6.25 MG TAB PO SCH ×2 (09:45→21:13)
[2017-10-26] MEDS: ALLOPURINOL 100 MG TAB PO SCH (09:45)
[2017-10-26] MEDS: SODIUM CHLORIDE 0.9% FLUSH 10 ML FLUSH IV FLUSH SCH ×2 (09:46→21:00)
[2017-10-26 12:29] VITALS: BP 137/65; PULSE 77; RESP 16; TEMP 98.8; O2SAT 95
--- NOTE | 2017-10-26 13:24 | HHI.PR ---
Subjective Remarks Patient reports she is feeling slightly better today. She was able to ambulate with the help of physical therapist. Still having some left lower chest discomfort with movement but does not like to take pain medications. Upon reviewing the records again today, it was discovered that the urine culture results noted yesterday is from a previous admission in September. I discussed this with the patient and her daughter. Objective Vitals Vital Signs Date Time Temp Pulse Resp B/P (MAP) Pulse Ox O2 Delivery O2 Flow Rate FiO2 10/26/17 12:29 98.8 77 16 137/65 (89) 95 10/26/17 07:32 98.3 84 16 141/63 (89) 99 10/26/17 04:10 98.3 81 14 134/61 (85) 96 10/25/17 23:56 98.6 84 14 122/58 (79) 96 10/25/17 17:12 98.7 93 16 137/59 (85) 97 10/25/17 16:42 91 122/65 (84) 98 10/25/17 16:42 10/25/17 15:09 89 18 128/61 (83) 97 Room Air 10/25/17 14:33 87 14 138/60 (86) 98 I/O 10/25/17 10/25/17 10/25/17 10/26/17 10/26/17 10/26/17 07:00 15:00 23:00 07:00 15:00 23:00 Intake Total 100 ml 1000 ml Balance 100 ml 1000 ml Intake IV Total 100 ml 1000 ml # Voids 2 # Bowel Movements 1 Result Diagram: 10/25/17 1135 10/25/17 1135 Objective Remarks GENERAL: T elderly and frail female, in no apparent distress. CARDIOVASCULAR: Normal rate and regular rhythm without murmurs, gallops, or rubs. RESPIRATORY: Good respiratory efforts. Endorse some pleuritic type pain on the left lower chest. Breath sounds equal and clear to auscultation bilaterally. GASTROINTESTINAL: Abdomen soft, non-tender, non-distended. Normal active bowel sounds MUSCULOSKELETAL: Extremities without cyanosis, or edema. NEURO: Alert & Oriented x4 to person, place, time, situation. Moves all ext x4. Some generalized weakness. PSYCH: Appropriate mood and affect. A/P Problem List: (1) Hypertension ICD Code: I10 - Essential (primary) hypertension (2) Squamous cell carcinoma of vulva ICD Code: C51.9 - Malignant neoplasm of vulva, unspecified (3) Diabetes ICD Code: E11.9 - Type 2 diabetes mellitus without complications (4) Gout ICD Code: M10.9 - Gout, unspecified (5) Debility ICD Code: R53.81 - Other malaise (6) Dyspnea on exertion ICD Code: R06.09 - Other forms of dyspnea (7) Anemia ICD Code: D64.9 - Anemia, unspecified Assessment and Plan 67-year-old female on chemotherapy for vulvar cancer presented to the hospital with complaint of pleuritic type left chest pain, shortness of breath, severe debility. Patient has had recurrent UTI outpatient and has been treated with multiple antibiotics. Debility: Likely secondary to chemotherapy and poor nutrition. - Physical therapy following. Patient planned to go to leave with her daughter on discharge. CKD: ?Acute on chronic. No baseline. Element of dehydration. She has had poor intake. - Improving with IVF. - Encourage oral hydration Concern for recurrent UTI: - After review of the medical records, my assessment yesterday was mistakenly based from a urinalysis from previous visit. I discussed this finding with the patient and her daughter. Given she has had recurrent UTI in the outpatient setting and has been on antibiotics. Will obtain a repeat urinalysis today. If negative, I advised them we will discontinue antibiotics and monitor the patient. They are in agreement with this plan. Hypertension: -Controlled. Continue Coreg. Squamous cell cancer of the vulva: Patient previously had radiation. Currently on carboplatin. She was previously on cisplatin. This was discontinued due to nephrotoxicity. Appreciate safety and health consultant, Dr. Reeves. Discharge Planning Keep in Observation for today. Plan for discharge tomorrow morning with home health. Continue IV hydration today. The patient's daughter will be able to take her home with her tomorrow to help care for her. Rowdy Rainey MD Oct 26, 2017 13:24
--- NOTE | 2017-10-26 14:58 | EKG ---
Date Performed: 10/25/2017 Time Performed: 11:31:42 PTAGE: 67 years EKG: Sinus rhythm NONSPECIFIC T-WAVE ABNORMALITY BORDERLINE ECG PREVIOUS TRACING : 10/13/1995 Poor R-wave progression in the anterior precordium. DOCTOR: Krystian Soto Interpretating Date/Time 10/27/2017 06:40:25
[2017-10-26 15:25] LABS: BILIRUBIN, URINE NEG (NEG); BLOOD, URINE NEG (NEG); GLUCOSE,URINE TRACE mg/dL (NEG); KETONE, URINE NEG (NEG); MUCUS URINE FEW /lpf (OCC); NITRITE,URINE NEG (NEG); SQUAMOUS EPITHELIAL CELL URINE <1 /hpf (0-5); URINE COLOR YELLOW (YELLW/STRAW); URINE LEUKOCYTE ESTERASE TRACE (NEG)
[2017-10-26 16:19] LABS: AUTOMATED NEUTROPHIL # 4.3 TH/MM3 (1.8-7.7); BASOPHIL % 0.3 % (0.0-2.0); EOSINOPHIL # 0.1 TH/MM3 (0-0.4); EOSINOPHIL % 1.1 % (0.0-4.0); HEMATOCRIT 23.2 % (35.0-46.0); HEMOGLOBIN 7.9 GM/DL (11.6-15.3); LYMPH % 8.9 % (9.0-44.0); LYMPHOCYTE # 0.5 TH/MM3 (1.0-4.8); MEAN CELL VOLUME 83.2 FL (80.0-100.0); MEAN CORPUSCULAR HEMOGLOBIN 28.4 PG (27.0-34.0); MEAN CORPUSCULAR HGB CONC 34.1 % (32.0-36.0); MEAN PLATELET VOLUME 7.1 FL (7.0-11.0); MONO % 10.9 % (0.0-8.0); MONOCYTE # 0.6 TH/MM3 (0-0.9); NEUT % 78.8 % (16.0-70.0); PLATELET COUNT 214 TH/MM3 (150-450); RED BLOOD COUNT 2.78 MIL/MM3 (4.00-5.30); RED CELL DISTRIBUTION WIDTH 26.5 % (11.6-17.2); WHITE BLOOD COUNT 5.5 TH/MM3 (4.0-11.0)
[2017-10-26 16:36] LABS: BICARBONATE 21.7 MEQ/L (21.0-32.0); CREATININE 1.54 MG/DL (0.50-1.00)
[2017-10-26 16:39] VITALS: BP 133/63; PULSE 91; RESP 16; TEMP 98.4; O2SAT 95
--- NOTE | 2017-10-26 17:03 | MB ---
cc: JOSE MENDEZ KELLY L. MD GRAHAM,GARCIA RAINEY,TING MINAYA M.D. DR. LORA, DATE OF CONSULTATION 10/26/[address] Rowdy Rainey and Dr. Veronique Subramanian REASON FOR CONSULTATION 1. Squamous cell carcinoma of the vulva. 2. Ongoing treatment. REASON FOR EMERGENCY ROOM REFERRAL Shortness of breath, weakness, pain, failure to thrive. HISTORY OF PRESENT ILLNESS This is a 67-year-old female who was seen in our office yesterday. She has a diagnosis of locally advanced squamous cell carcinoma of the vulva with regional extension, radiographic and clinically positive groin lymph nodes and retroperitoneal pelvic lymph nodes. At the time of diagnosis, the state of her disease was not amenable to surgical resection. We recommended chemotherapy sensitization with [place] during her radiation therapy. She lives in [facility] and wanted her treatments to be in [facility] and she has been receiving all of her treatments closer to [place] hometown. She was seen by our nurse practitioner recently where it was felt that she was having a good response to radiation. From a tumor standpoint, most of the tissue irritation was related to radiation treatments. She followed up with us yesterday. We had a very extensive discussion. Her history and everything reviewed is in a detailed note in the [facility] system that we must use in the oncology center. Due to delayed and/or incompatible communication with the hospital system this note is not yet available, and to repeat these details is unnecessary. She is seen in the emergency room where I met with she and her daughter. I had the opportunity speak with her nurse as well, summarized the findings thus far. I explained that my principal concern with her feeling poorly was that of a possible pulmonary emboli, as she reported shortness of breath of at least three weeks duration, inability to have much energy at home, rarely out of bed and even more profoundly short of breath with a sense of chest discomfort with any activity. She had also reported she had a chest x-ray in her hometown, but these results were not available and she was unaware of the results. We talked about the possibility of metastatic disease in the lungs contributing to her shortness of breath. We also talked about systemic illness, anemia, dehydration, underlying illness, poor nutrition, depression and host of other things that may likely be contributing to her feeling poorly. Nevertheless, the more acute things needed to be evaluated. She underwent a chest x-ray that showed a small left pleural effusion, no obvious pneumonia, no obvious measurable mediastinal adenopathy or metastatic lesions and these results are shared with them. Furthermore, she underwent a VQ scan. Her creatinine was elevated and, therefore, she did not undergo a CT angiogram, but the VQ scan was interpreted as low probability of pulmonary emboli. These results are shared with them and I am pleased with these results, so that there is no overt evidence to suggest pneumonia, symptomatic pulmonary metastasis or pulmonary emboli. There is about additional ongoing evaluation. Physical therapy assisted her with ambulation after which she felt somewhat sweaty, had a sense of chest discomfort, so she is being further evaluated. From a cardiac standpoint, it is my understanding that an echocardiogram has been ordered and is forthcoming. She does appear to be in brighter spirits and feels a bit better after IV hydration. She is made aware of her labs. She is anemic with a hemoglobin of 8.5, which is in near a threshold for transfusion but it depends on her overall status and symptomatology and I would defer to the medicine team and/or emergency room team as to whether or not transfusion is warranted. She understands the underlying illness as well as treatment are contributing to this anemia. Also noted is her BUN and creatinine are 25 and 1.97. Transaminases are relatively normal. Potassium normal at 4.2. Blood cultures have been obtained. No growth in 24 hours. PHYSICAL EXAMINATION VITAL SIGNS: She is afebrile, pulse 77-93, respirations 14-16, blood pressure 122-141 over 59-65, O2 saturations greater than or equal to 95%. GENERAL: She is alert and oriented x3 in no acute distress. She is comfortable. LUNGS: Respirations may be slightly labored at rest, but her lungs are clear. CARDIOVASCULAR: Regular rate and rhythm. There is no overt CVA tenderness. ABDOMEN: She reports discomfort along the left lower and left upper quadrant, but she tolerates exam well without rebound or guarding. There is no overt abdominal mass palpable and no overt ascites. PELVIC: Exam is deferred given relatively recent exam in our office. EXTREMITIES: Neurovascular intact. No palpable cords. More time is spent in discussion with she and her daughter answering questions regarding her current symptoms as well as overall status. She remains undecided as to whether or not she will complete the additional four or five fractions of radiation that had been recommended by her radiation oncologist (Dr. Garcia Aguirre), but she is encouraged to consider this and follow through with that recommendation as it may provide further benefit. With respect to the chemotherapy, that has been discontinued by her medical oncologist, (Dr. Carpio) as she received six weekly cycles and, with the renal function, that was changed from cisplatin and carboplatin and is now put on hold. I explained that we will continue to treat the treatable, fix and reverse the reversible problems. Some of her problems will not be able to be fixed. The anatomical changes to the vulva will never completely normalize and what is expected after a significant tumor and after radiation are again described. Questions were asked and answered. Whether or not she will ultimately require hospital admission or further evaluation, I will defer to the emergency room physician and hospitalist. From gynecologic oncology standpoint, I am pleased that we have excluded obvious pulmonary emboli, overt measurable pulmonary metastasis and pneumonia. No change in treatment recommendations as she is almost finish with the recommended course of therapy with respect to radiation. I would recommend waiting perhaps at least eight weeks to consider outpatient PET CT scan. They understand a PET CT scan obtained now will show a lot of inflammation from the ongoing radiation that would be interpreted falsely as positive and it would be prudent to wait some time until imaging to avoid false positives from the radiation induced inflammation. More questions were asked and answered. They expressed good understanding and agreed. ASSESSMENT 1. Extensive squamous cell carcinoma of the vulva with clinical and radiographic evidence of inguinal, femoral and the pelvic lymph nodes consistent with metastatic disease. 2. Almost completed all of recommended radiation and has completed recommended chemotherapy with five additional fractions of radiation recommended by her physicians in [facility]. 3. Shortness of breath, fatigue, failure to thrive, anemia, dehydration and other issues as discussed and as are being addressed. 4. We will defer to medicine team as to whether or not she would benefit from transfusion. 5. Ongoing cardiac evaluation. 6. Extensive discussion. PLAN As outlined by emergency room physician, hospitalist and Consultants - 1. From a DE[employer]LECTION SPECIALIST oncology standpoint, she has been encouraged to follow through with remaining 4 or 5 fractions of radiation as recommended. 2. Also included in our discussion are the resources available from Hospice should she ever feel that that is appropriate for her. Thank you for the consultation. We will follow along in her care. MD VENKAT Campbell/ /1:13 PM /4:29 PM REYMUNDO
[2017-10-26 17:04] LABS: BANDS 2 % (0-6); LYMPHOCYTES 14 % (9-44); METAMYELOCYTES 3 % (0-1); MONOCYTES 9 % (0-8); NEUTROPHIL # MANUAL DIFF 4.2 TH/MM3 (1.8-7.7); POLYS (SEG NEUTROPHILS) 72 % (16-70)
[2017-10-26 17:05] LABS: OVALOCYTES 1+ (NORMAL)
[2017-10-26] MEDS: KETOROLAC TROMETHAMINE 10 MG TAB PO PRN (19:19)
[2017-10-26 19:26] VITALS: BP 152/67; PULSE 92; RESP 16; TEMP 99.1; O2SAT 98
[2017-10-26 23:57] VITALS: BP 146/67; PULSE 80; RESP 16; TEMP 98; O2SAT 98
[2017-10-27] VITALS (12 sets, daily range): BP systolic 110–171; BP diastolic 50–79; PULSE 78–96; RESP 14–18; TEMP 97.6–100.4; O2SAT 94–98
[2017-10-27] MEDS: INSULIN ASPART SUPPLEMENTAL SCALE SQ SCH ×2 (08:00→13:23)
--- NOTE | 2017-10-27 08:29 | HHI.FF ---
Face to Face Verification Diagnosis: (1) Dyspnea on exertion (2) Debility (3) Hypertension (4) Diabetes (5) Anemia (6) Squamous cell carcinoma of vulva Physical Therapy Order: Evaluate and Treat, Improve ambulation, Strength and gait training Home Health Nursing Order: Signs/symptoms of disease process Medication education-adverse effect Nursing assessment with vital signs I have seen patient Sapphire Carpenter on 10/27/17. My clinical findings support the need for the requested home health care services because: Deconditioned w/ increased weakness I certify that my clinical findings support that this patient is homebound because: Unsteady gait/balance Rowdy Rainey MD Oct 27, 2017 08:29
[2017-10-27] MEDS ORDERED: KETO10 PO (08:31)
[2017-10-27 08:49] LABS: AUTOMATED NEUTROPHIL # 3.5 TH/MM3 (1.8-7.7); BASOPHIL % 0.5 % (0.0-2.0); EOSINOPHIL # 0.1 TH/MM3 (0-0.4); EOSINOPHIL % 1.3 % (0.0-4.0); LYMPH % 9.9 % (9.0-44.0); LYMPHOCYTE # 0.5 TH/MM3 (1.0-4.8); MEAN CELL VOLUME 82.6 FL (80.0-100.0); MEAN CORPUSCULAR HEMOGLOBIN 28.4 PG (27.0-34.0); MEAN CORPUSCULAR HGB CONC 34.4 % (32.0-36.0); MEAN PLATELET VOLUME 6.9 FL (7.0-11.0); MONO % 12.1 % (0.0-8.0); MONOCYTE # 0.5 TH/MM3 (0-0.9); NEUT % 76.2 % (16.0-70.0); PLATELET COUNT 182 TH/MM3 (150-450); RED BLOOD COUNT 2.27 MIL/MM3 (4.00-5.30); RED CELL DISTRIBUTION WIDTH 25.7 % (11.6-17.2); WHITE BLOOD COUNT 4.6 TH/MM3 (4.0-11.0)
[2017-10-27 08:57] LABS: HEMOGLOBIN 6.4 GM/DL (11.6-15.3)
[2017-10-27 08:58] LABS: HEMATOCRIT 18.8 % (35.0-46.0)
[2017-10-27] MEDS ORDERED: SODIUM CHLOR 0.9% 250 ML INJ 250 ML IV ONE (09:00)
[2017-10-27] MEDS ORDERED: FUROSEMIDE 20 MG/2 ML VIAL IV PUSH ONE (09:00)
--- NOTE | 2017-10-27 09:02 | HHI.DS ---
Discharge Summary Admission Date Oct 25, 2017 at 16:41 Discharge Date: Oct 27, 2017 Admitting Diagnosis UTI/Sirs (1) Hypertension ICD Code: I10 - Essential (primary) hypertension (2) Squamous cell carcinoma of vulva ICD Code: C51.9 - Malignant neoplasm of vulva, unspecified (3) Diabetes ICD Code: E11.9 - Type 2 diabetes mellitus without complications (4) Gout ICD Code: M10.9 - Gout, unspecified (5) Debility ICD Code: R53.81 - Other malaise (6) Dyspnea on exertion ICD Code: R06.09 - Other forms of dyspnea (7) Anemia ICD Code: D64.9 - Anemia, unspecified Procedures None Brief History - From Admission 67-year-old female with a medical history significant for type II diabetes, gout , CKD, kidney stones, 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 Reeves. Patient reports for the past 3 weeks she has been very fatigued, short of breath with minimal activity. She reports that her symptoms seems to have all started after she was switched from cisplatin to carboplatin. Apparently she had worsening renal functions with cisplatin. Over the past few weeks, the patient has been treated multiple times for urinary tract infections. She was in fact on Levaquin prior to presenting today. ED physician concerned about persistent UTI despite outpatient antibiotics. Currently the patient denies any episodes of fevers or chills. She denies dysuria or suprapubic pain. She does report a feeling of generalized malaise and pain all over. Further discussion with her daughter revealed she has a poor appetite and has been more sedentary lately. CBC/BMP: 10/27/17 0835 10/26/17 1547 Significant Findings Laboratory Tests Test 10/25/17 11:35 10/25/17 14:45 10/25/17 17:30 10/26/17 14:15 Red Blood Count 2.96 MIL/MM3 (4.00-5.30) Hemoglobin 8.5 GM/DL (11.6-15.3) Hematocrit 24.3 % (35.0-46.0) Red Cell Distribution Width 25.9 % (11.6-17.2) Neutrophils (%) (Auto) 77.0 % (16.0-70.0) Monocytes (%) (Auto) 11.7 % (0.0-8.0) Lymphocytes # (Auto) 0.7 TH/MM3 (1.0-4.8) Neutrophils % (Manual) 73 % (16-70) Monocytes % 12 % (0-8) Myelocytes 2 % (0-0) Blood Urea Nitrogen 25 MG/DL (7-18) Creatinine 1.97 MG/DL (0.50-1.00) Random Glucose 60 MG/DL (74-106) Albumin 3.0 GM/DL (3.4-5.0) Aspartate Amino Transf (AST/SGOT) 6 U/L (15-37) Alanine Aminotransferase (ALT/SGPT) 7 U/L (10-53) Sodium Level 134 MEQ/L (136-145) Estimat Glomerular Filtration Rate 25 ML/MIN (>89) Lactic Acid Level 2.7 mmol/L (0.4-2.0) Urine Leukocyte Esterase TRACE (NEG) Urine Mucus FEW /lpf (OCC) Test 10/26/17 15:37 10/26/17 15:47 10/27/17 08:35 Red Blood Count 2.78 MIL/MM3 (4.00-5.30) 2.27 MIL/MM3 (4.00-5.30) Hemoglobin 7.9 GM/DL (11.6-15.3) 6.4 GM/DL (11.6-15.3) Hematocrit 23.2 % (35.0-46.0) 18.8 % (35.0-46.0) Red Cell Distribution Width 26.5 % (11.6-17.2) 25.7 % (11.6-17.2) Neutrophils (%) (Auto) 78.8 % (16.0-70.0) 76.2 % (16.0-70.0) Lymphocytes (%) (Auto) 8.9 % (9.0-44.0) Monocytes (%) (Auto) 10.9 % (0.0-8.0) 12.1 % (0.0-8.0) Lymphocytes # (Auto) 0.5 TH/MM3 (1.0-4.8) 0.5 TH/MM3 (1.0-4.8) Neutrophils % (Manual) 72 % (16-70) Monocytes % 9 % (0-8) Metamyelocytes 3 % (0-1) Ovalocytes 1+ (NORMAL) Blood Urea Nitrogen 21 MG/DL (7-18) Creatinine 1.54 MG/DL (0.50-1.00) Random Glucose 141 MG/DL (74-106) Sodium Level 135 MEQ/L (136-145) Estimat Glomerular Filtration Rate 33 ML/MIN (>89) Mean Platelet Volume 6.9 FL (7.0-11.0) Imaging Last Impressions Lung Scan-VQ Nuclear Medicine 10/25/17 1226 Signed Impressions: Service Date/Time: Wednesday, October 25, 2017 14:01 - CONCLUSION: Low probability for pulmonary embolism Mika Szymanski MD FACR Chest X-Ray 10/25/17 1123 Signed Impressions: Service Date/Time: Wednesday, October 25, 2017 11:36 - CONCLUSION: Left basilar opacity likely representing small pleural effusion with associated atelectasis and/or airspace consolidation. Trey Blair MD PE at Discharge GENERAL: T elderly and frail female, in no apparent distress. CARDIOVASCULAR: Normal rate and regular rhythm without murmurs, gallops, or rubs. RESPIRATORY: Good respiratory efforts. Endorse some pleuritic type pain on the left lower chest. Breath sounds equal and clear to auscultation bilaterally. GASTROINTESTINAL: Abdomen soft, non-tender, non-distended. Normal active bowel sounds MUSCULOSKELETAL: Extremities without cyanosis, or edema. NEURO: Alert & Oriented x4 to person, place, time, situation. Moves all ext x4. Some generalized weakness. PSYCH: Appropriate mood and affect. Pt update on day of discharge Patient reports she is feeling better. Hemoglobin dropped to 6.4. She will be transfused prior to discharge. Hospital Course 67-year-old female on chemotherapy for vulvar cancer presented to the hospital with complaint of pleuritic type left chest pain, shortness of breath, severe debility. Patient has had recurrent UTI outpatient and has been treated with multiple antibiotics. Initially there were concern for recurrent UTI but the urinalysis noted was from her previous visit. Repeat urinalysis was negative. Therefore antibiotics were discontinued. The patient appeared very debilitated and dehydrated. She was evaluated by physical therapy. She was treated with IV fluid. On further monitoring, her hemoglobin dropped down to 6.4. She was transfused 2 units of PRBC. Patient was seen by her oncologist, Dr. Reeves. She is advised to follow-up outpatient and continue treatment as tolerated. Other conditions treated include: CKD: ?Acute on chronic. No baseline. Element of dehydration and anemia. She has had poor intake. - Improving with IVF. Status post transfusion. - Encourage oral hydration Hypertension: -Controlled. Continue Coreg. Pt Condition on Discharge: Good Discharge Disposition: Disch w/ Home Health Serv Discharge Time: <= 30 minutes Discharge Instructions DIET: Follow Instructions for: Diabetic Diet Activities you can perform: Regular-No Restrictions Follow up Referrals: [facility] On[facility] New Medications: Ketorolac (Ketorolac) 10 Mg Tab 10 MG PO Q6H PRN for pain >5, #10 TAB Continued Medications: Allopurinol (Allopurinol) 300 Mg Tab 450 MG PO DAILY for Gout, #30 TAB 0 Refills Alprazolam (Alprazolam) 0.5 Mg Tab 0.5 MG PO Q6H PRN for ANXIETY, TAB 0 Refills Carvedilol (Carvedilol) 6.25 Mg Tab 6.25 MG PO BID, #60 TAB 0 Refills Insulin Aspart Inj (Novolog Inj) 1,000 Unit/10 Ml Vial UNITS SQ TID for Blood Sugar Management, #1 INJECTION 0 Refills SLIDING SCALE DIRECTED Metformin (Metformin) 1,000 Mg Tab 1000 MG PO BIDPC for Blood Sugar Management, #60 TAB 0 Refills Discontinued Medications: Levofloxacin (Levaquin) 750 Mg Tablet 750 MG PO DAILY for Infection, TAB 0 Refills Rowdy Rainey MD Oct 27, 2017 09:02
[2017-10-27] MEDS: CARVEDILOL 6.25 MG TAB PO SCH (09:08)
[2017-10-27] MEDS: ALLOPURINOL 100 MG TAB PO SCH (09:08)
[2017-10-27] MEDS: SODIUM CHLORIDE 0.9% FLUSH 10 ML FLUSH IV FLUSH SCH (09:08)
[2017-10-27 09:30] LABS: OVALOCYTES 1+ (NORMAL)
== END 2017-10-27 22:13 | disposition home health service (06) | DRG 641 ==
LOC: NEPC 10:40 → NEDA 15:30 → OBSVTOIN 16:41 → NEPHCDU 17:10
PROVIDERS: ADMIT Family Medicine; ATTEND Family Medicine
PROC: 30233N1 Transfusion of Nonautologous Red Blood Cells into Peripheral Vein, Percutaneous Approach (ICD-10-PCS; principal; 2017-10-27)
DX: E86.0 Dehydration (principal); J90 Pleural effusion, not elsewhere classified; C77.9 Secondary and unspecified malignant neoplasm of lymph node, unspecified; E11.22 Type 2 diabetes mellitus with diabetic chronic kidney disease; I12.9 Hypertensive chronic kidney disease with stage 1 through stage 4 chronic kidney disease, or unspecified chronic kidney disease; C51.9 Malignant neoplasm of vulva, unspecified; R62.7 Adult failure to thrive; D64.9 Anemia, unspecified; R07.81 Pleurodynia; M10.9 Gout, unspecified; N18.9 Chronic kidney disease, unspecified; R06.02 Shortness of breath; Z87.442 Personal history of urinary calculi; Z90.710 Acquired absence of both cervix and uterus; R06.09 Other forms of dyspnea; Z87.440 Personal history of urinary (tract) infections
CPT/HCPCS: 36430; 71045; 78582; 80048; 80053; 81001; 82948; 83605; 83735; 83880; 85007; 85025; 85027; 85610; 85730; 86850; 86900; 86901; 86920; 87040; 93005; 94150; 96361; 96365; 96366; 96372; 96375; A9540; A9567; G0378; J0692; J1642; J1815; J1940; J7030; J7050; P9016

== ENCOUNTER 2017-11-08 11:54 | Inpatient (IN) | payer OTHER, MEDICARE ==
[~2017-11-08] VITALS: Ht 167.6 cm; Wt 59.0 kg
[~2017-11-08 11:54] MED LIST changes: +ALPR0.5T3 PO; +KETO10 PO; -LISI10TA3 PO; -MULT1TAB46 PO; -OXYB5TAB8 PO
[2017-11-08] MEDS ORDERED: IODIXANOL 320 MG/ML 10 ML VIAL (for Rad CT) IVCONTRAST ONE (11:55)
[2017-11-08 12:03] VITALS: BP 135/84; PULSE 101; RESP 20; TEMP 98.1; O2SAT 94
[2017-11-08 12:41] LABS: AUTOMATED NEUTROPHIL # 9.9 TH/MM3 (1.8-7.7); BASOPHIL # 0.1 TH/MM3 (0-0.2); BASOPHIL % 0.5 % (0.0-2.0); EOSINOPHIL % 0.2 % (0.0-4.0); HEMATOCRIT 28.9 % (35.0-46.0); HEMOGLOBIN 9.7 GM/DL (11.6-15.3); LYMPH % 6.6 % (9.0-44.0); LYMPHOCYTE # 0.7 TH/MM3 (1.0-4.8); MEAN CORPUSCULAR HEMOGLOBIN 28.4 PG (27.0-34.0); MEAN CORPUSCULAR HGB CONC 33.4 % (32.0-36.0); MEAN PLATELET VOLUME 7.3 FL (7.0-11.0); MONO % 4.2 % (0.0-8.0); MONOCYTE # 0.5 TH/MM3 (0-0.9); NEUT % 88.5 % (16.0-70.0); PLATELET COUNT 257 TH/MM3 (150-450); RED CELL DISTRIBUTION WIDTH 23.3 % (11.6-17.2); WHITE BLOOD COUNT 11.2 TH/MM3 (4.0-11.0)
--- NOTE | 2017-11-08 12:46 | RADRPT ---
EXAM DATE/TIME: 11/08/2017 12:35 [facility] COMPARISON: No previous studies available for comparison. INDICATIONS : Chest pain and weakness. MEDICAL HISTORY : Vulva cancer. SURGICAL HISTORY : Infusaport. ENCOUNTER: Initial ACUITY: 1 day PAIN SCORE: 0/10 LOCATION: Bilateral chest FINDINGS: The left lung base is opacified from the hilum to the diaphragm. Costophrenic angle is blunted. Right lung is clear. Heart is mildly enlarged. Yogxyp-m-Puzz catheter seen on the right. Osseous structures are intact. CONCLUSION: 1. Left basilar opacity characteristic of moderate pleural effusion and underlying airspace disease. 2. Clear right lung. 3. Mild cardiomegaly. 4. Right-sided Lqielq-y-Zrxk. Clarke Olmos MD on November 08, 2017 at 12:42 Board Certified Radiologist. This report was verified electronically.
[2017-11-08 13:06] VITALS: BP 156/77; PULSE 98; RESP 24; O2SAT 94
[2017-11-08 13:07] LABS: BICARBONATE 25.1 MEQ/L (21.0-32.0); BLOOD UREA NITROGEN 25 MG/DL (7-18); CHLORIDE 98 MEQ/L (98-107); CREATININE 1.33 MG/DL (0.50-1.00); GLOMERULAR FILTRATION RATE 40 ML/MIN (>89); GLUCOSE,RANDOM 248 MG/DL (74-106); SODIUM (NA) 131 MEQ/L (136-145); TROPONIN I LESS THAN 0.02 NG/ML (0.02-0.05)
[2017-11-08 13:10] LABS: CALCIUM 13.2 MG/DL (8.5-10.1)
[2017-11-08] MEDS ORDERED: SODIUM CHLOR 0.9% 1000 ML INJ 1,000 ML IV SCH (13:11)
--- NOTE | 2017-11-08 13:11 | PD ---
HPI Chief Complaint: Chest Pain Time Seen by Provider: 12:55 Travel History International Travel<30 days: No Contact w/Intl Traveler<30days: No Traveled to known affect area: No History of Present Illness HPI 67-year-old female presents with her daughter for evaluation. For the past 2 weeks the patient has been experiencing slurred speech, episodes of confusion, decreased energy. Past 4 weeks she has been having a sharp left-sided chest pain with shortness of breath that is worse with deep inspiration. Most recently the patient finished chemotherapy 4 weeks ago and radiation therapy 2 weeks ago. Denies cough, congestion, fevers, chills, abdominal pain, vomiting, diarrhea, flank pain. Sent here by her oncologist's office today. No other complaints. PFSH Past Medical History Cancer: Yes (Vulvar) Cardiovascular Problems: Yes Chemotherapy: Yes (at present) Endocrine: No Genitourinary: No Hepatitis: No Hiatal Hernia: No Hypertension: Yes Immune Disorder: No Musculoskeletal: Yes Neurologic: No Psychiatric: Yes Respiratory: No Radiation Therapy: Yes Thyroid Disease: No Past Surgical History Body Medical Devices: clamp and screw in neck and plate in neck Cardiac Surgery: Yes (heart cath) Ear Surgery: No Endocrine Surgery: No Eye Surgery: No Genitourinary Surgery: Yes (kidney stone removal) Gynecologic Surgery: Yes (hysterectomy) Hysterectomy: Yes Neurologic Surgery: Yes (cervical laminectomy c123) Oral Surgery: No Other Surgery: Yes Social History Alcohol Use: No Tobacco Use: No Substance Use: No Allergies-Medications (Allergen,Severity, Reaction): Coded Allergies: Penicillins (Verified Allergy, Severe, rash/hives, 11/08/17) Sulfa (Sulfonamide Antibiotics) (Verified Allergy, Severe, rash/hives, ) codeine (Verified Allergy, Severe, rash, 11/08/17) tramadol (Verified Allergy, Severe, itch/legs numb and she fell, 11/08/17) Tetanus Vaccines and Toxoid (Verified Allergy, Mild, Rash, 11/08/17) Reported Meds & Prescriptions Reported Meds & Active Scripts Active Reported Alprazolam 0.5 Mg Tab 0.5 Mg PO Q6H PRN Allopurinol 300 Mg Tab 450 Mg PO DAILY Carvedilol 6.25 Mg Tab 6.25 Mg PO BID Metformin (Metformin HCl) 1,000 Mg Tab 1,000 Mg PO BIDPC Novolog Inj (Insulin Aspart) 1,000 Unit/10 Ml Vial Units SQ TID SLIDING SCALE DIRECTED Review of Systems Except as stated in HPI: all other systems reviewed are Neg Physical Exam Narrative GENERAL: Chronically ill-appearing female in no acute distress. SKIN: Warm and dry. HEAD: Atraumatic. Normocephalic. EYES: Pupils equal and round. No scleral icterus. No injection or drainage. ENT: No nasal bleeding or discharge. Mucous membranes pink and moist. NECK: Trachea midline. No JVD. CARDIOVASCULAR: Regular rate and rhythm. No murmur appreciated. RESPIRATORY: No accessory muscle use. Clear to auscultation. Breath sounds equal bilaterally. No crackles no wheezing or rhonchi GASTROINTESTINAL: Abdomen soft, non-tender, nondistended. Hepatic and splenic margins not palpable. MUSCULOSKELETAL: No obvious deformities. No clubbing. No cyanosis. No edema. NEUROLOGICAL: Awake and alert. No obvious cranial nerve deficits. Motor grossly within normal limits. Mild slurred speech. Alert to person, place, time. Data Data Last Documented VS Vital Signs Date Time Temp Pulse Resp B/P (MAP) Pulse Ox O2 Delivery O2 Flow Rate FiO2 11/08/17 13:06 98 24 156/77 (103) 94 Room Air 11/08/17 12:03 98.1 Orders Orders Electrocardiogram (11/08/17 12:07) Complete Blood Count With Diff (11/08/17 12:07) Basic Metabolic Panel (Bmp) (11/08/17 12:07) Ckmb (Isoenzyme) Profile (11/08/17 12:07) Troponin I (11/08/17 12:07) Iv Access Insert/Monitor (11/08/17 12:07) Ecg Monitoring (11/08/17 12:07) Oxygen Administration (11/08/17 12:07) Oximetry (11/08/17 12:07) Chest, Pa & Lat (11/08/17 12:07) Act Partial Throm Time (Ptt) (11/08/17 13:04) Prothrombin Time / Inr (Pt) (11/08/17 13:04) Ct Brain W/O Iv Contrast(Rout) (11/08/17 13:04) Ct Pulmonary Angiogram (11/08/17 13:04) Urinalysis - C+S If Indicated (11/08/17 13:04) Cath For Specimen (11/08/17 13:04) Protein Corrected Calcium(Pcc) (11/08/17 12:24) Sodium Chlor 0.9% 1000 Ml Inj (Ns 1000 M (11/08/17 13:11) Iodixanol 320 Inj (Rad Ct) (Visipaque 32 (11/08/17 11:55) Blood Culture (11/08/17 14:37) Admit Order (Ed Use Only) (11/08/17 15:13) Consult [facility] Oncology (11/08/17 ) Admit To Inpatient (11/08/17 ) Vital Signs (Adult) Q4H (11/08/17 15:13) Activity Oob With Assistance (11/08/17 15:13) Language Asst / Telemetry .CONTINUOUS (11/08/17 15:13) Diet Heart Healthy (11/08/17 Dinner) Sodium Chloride 0.9% Flush (Ns Flush) (11/08/17 15:15) Sodium Chloride 0.9% Flush (Ns Flush) (11/08/17 21:00) Ondansetron Inj (Zofran Inj) (11/08/17 15:15) Basic Metabolic Panel (Bmp) (11/09/17 06:00) Complete Blood Count With Diff (11/09/17 06:00) Resp Oxygen Jose C Titrat 1-4 L (11/08/17 ) Pt Request For Service (11/08/17 15:13) Case Management Consult (11/08/17 15:13) Naloxone Inj (Narcan Inj) (11/08/17 15:15) Inpatient Certification (11/08/17 ) Us Guided Thoracentesis (11/08/17 ) Glucose, Pleural Fluid (11/08/17 15:13) Ldh, Pleural Fluid (11/08/17 15:13) Pleural Fluid Ph (11/08/17 15:13) Pleural Fl Cell Count + Diff (11/08/17 15:13) Fluid Culture And Gram Stain (11/08/17 15:13) Cytology Request For Service (11/08/17 15:13) Total Protein, Pleural Fluid (11/08/17 15:13) Labs Laboratory Tests Test 11/08/17 12:24 11/08/17 13:26 White Blood Count 11.2 TH/MM3 Red Blood Count 3.40 MIL/MM3 Hemoglobin 9.7 GM/DL Hematocrit 28.9 % Mean Corpuscular Volume 85.0 FL Mean Corpuscular Hemoglobin 28.4 PG Mean Corpuscular Hemoglobin Concent 33.4 % Red Cell Distribution Width 23.3 % Platelet Count 257 TH/MM3 Mean Platelet Volume 7.3 FL Neutrophils (%) (Auto) 88.5 % Lymphocytes (%) (Auto) 6.6 % Monocytes (%) (Auto) 4.2 % Eosinophils (%) (Auto) 0.2 % Basophils (%) (Auto) 0.5 % Neutrophils # (Auto) 9.9 TH/MM3 Lymphocytes # (Auto) 0.7 TH/MM3 Monocytes # (Auto) 0.5 TH/MM3 Eosinophils # (Auto) 0.0 TH/MM3 Basophils # (Auto) 0.1 TH/MM3 CBC Comment DIFF FINAL Differential Comment Blood Urea Nitrogen 25 MG/DL Creatinine 1.33 MG/DL Random Glucose 248 MG/DL Total Protein 8.2 GM/DL Calcium Level 13.2 MG/DL Sodium Level 131 MEQ/L Potassium Level 5.0 MEQ/L Chloride Level 98 MEQ/L Carbon Dioxide Level 25.1 MEQ/L Anion Gap 8 MEQ/L Estimat Glomerular Filtration Rate 40 ML/MIN Protein Corrected Calcium 12.4 MG/DL Total Creatine Kinase 9 U/L Troponin I LESS THAN 0.02 NG/ML Prothrombin Time 11.4 SEC Prothromb Time International Ratio 1.1 RATIO Activated Partial Thromboplast Time 25.9 SEC [facility] Medical Decision Making Medical Screen Exam Complete: Yes Emergency Medical Condition: Yes Medical Record Reviewed: Yes Differential Diagnosis PE, pneumonia, pleural effusion, dehydration, CVA, electrolyte abnormality, hypoglycemia Narrative Course CT pulmonary angiogram reveals CONCLUSION: No evidence of pulmonary embolism. Multiple bilateral lung nodules. Large left effusion with compressive atelectasis in the left lung base. Right hilar and central mediastinal adenopathy. CBC reveals mild elevation in the BPD count of 11.2. Blood cultures have been added on. Protein corrected calcium is 12.4. IV fluids have been ordered. GFR is 40. Cardiac enzymes are negative. Her oxygen saturation was in the low 90s on room air and so she was put on 2 L of oxygen with improvement. I suspect that the large left pleural effusion is affecting her breathing. I discussed the findings with her oncologist Dr. Reeves . Reports that the bilateral lung nodules are new finding and suggestive of metastatic disease. I discussed the findings with the patient and family members and the patient will be admitted. They are agreeable to hospice consultation during her hospital stay. Diagnosis Primary Impression: Pleural effusion Additional Impressions: Hypercalcemia Lung nodules Admitting Information Admitting Physician Requests: Admit Slick Davey Nov 08, 2017 13:11
[2017-11-08 13:22] LABS: TOTAL PROTEIN 8.2 GM/DL (6.4-8.2)
[2017-11-08 13:25] LABS: CALCIUM-PROTEIN CORRECTED 12.4 MG/DL (8.5-10.1)
[2017-11-08 14:05] LABS: INTERNATIONAL NORMALIZED RATIO 1.1 RATIO; PROTHROMBIN TIME - PATIENT 11.4 SEC (9.8-11.6)
--- NOTE | 2017-11-08 14:05 | RADRPT ---
EXAM DATE/TIME: 11/08/2017 13:57 [facility] COMPARISON: No previous studies available for comparison. INDICATIONS : Altered mental status for two weeks. RADIATION DOSE: 50.85 CTDIvol (mGy) MEDICAL HISTORY : Renal calculi. Vulvar cancer SURGICAL HISTORY : Hysterectomy. Discectomy, cervical.Chemo [place] ENCOUNTER: Initial ACUITY: 2 weeks PAIN SCALE: 3/10 LOCATION: Bilateral cranial TECHNIQUE: Multiple contiguous axial images were obtained of the head. Using automated exposure control and adj ustment of the mA and/or kV according to patient size, radiation dose was kept as low as reasonably a chievable to obtain optimal diagnostic quality images. DICOM format image data is available electro nically for review and comparison. FINDINGS: CEREBRUM: There is moderate generalized atrophy. Ventricles are normal in size given the degree of atr present. Mild periventricular white matter low-attenuation is present. No evidence of midline shift, mass le nissa, hemorrhage or acute infarction. No extra-axial fluid collections are seen. POSTERIOR FOSSA: The cerebellum and brainstem demonstrate no acute finding. The 4th ventricle is midline. The cerebe llopontine angle is unremarkable. EXTRACRANIAL: Visualized sinuses are clear. SKULL: The calvaria is intact. No evidence of skull fracture. CONCLUSION: 1. No acute intracranial abnormality is identified. 2. Chronic changes include generalized atrophy and periventricular white matter low attenuation bradley cteristic of chronic microvascular ischemia. Trey Blair MD on November 08, 2017 at 14:02 Board Certified Radiologist. This report was verified electronically.
--- NOTE | 2017-11-08 14:15 | RADRPT ---
EXAM DATE/TIME: 11/08/2017 14:02 [facility] COMPARISON: No previous studies available for comparison. INDICATIONS : Short of breath, embolism. IV CONTRAST: 47 cc Visipaque (iodixanol) IV RADIATION DOSE: 9.64 CTDIvol (mGy) MEDICAL HISTORY : Renal calculi. Vulvar cancer. SURGICAL HISTORY : Hysterectomy. Discectomy, cervical. ENCOUNTER: Initial ACUITY: 2 weeks PAIN SCALE: 3/10 LOCATION: Bilateral chest TECHNIQUE: Volumetric scanning of the chest was performed using a pulmonary embolism protocol MIP images were re constructed. Using automated exposure control and adjustment of the mA and/or kV according to patien t size, radiation dose was kept as low as reasonably achievable to obtain optimal diagnostic quality images. DICOM format image data is available electronically for review and comparison. Follow-up recommendations for detected pulmonary nodules are based at a minimum on nodule size and pa tient risk factors according to Fleischner Society Guidelines. FINDINGS: PULMONARY ARTERIES: No filling defects are seen in the pulmonary arteries through the segmental level. LUNGS: There are multiple bilateral pulmonary nodules of varying sizes. There is dense consolidation associa erendira with large left effusion. PLEURAE: Large left effusion. MEDIASTINUM: Subcarinal adenopathy with lymph node measuring 2.4 cm. Moderate prominence of right hilar brunilda tiss ue. MUSCULOSKELETAL: Within normal limits for patient age. MISCELLANEOUS: The visualized upper abdominal organs demonstrate no acute abnormality. CONCLUSION: No evidence of pulmonary embolism. Multiple bilateral lung nodules. Large left effusion with compressive atelectasis in the left lung base. Right hilar and central mediastinal adenopathy. Trey Johnson MD on November 08, 2017 at 14:10 Board Certified Radiologist. This report was verified electronically.
[2017-11-08] MEDS ORDERED: NALOXONE HCL 0.4 MG/ML AMP IV PUSH PRN (15:15)
[2017-11-08] MEDS ORDERED: ONDANSETRON HCL 4 MG/2 ML VIAL IVP PRN (15:15)
[2017-11-08] MEDS ORDERED: SODIUM CHLORIDE 0.9% FLUSH 10 ML FLUSH IV FLUSH PRN (15:15)
--- NOTE | 2017-11-08 15:47 | HHI.HP ---
[facility] Unknown Admission Diagnosis hypercalcemia, pleural effusion, weakness Diagnoses: Travel History International Travel<30 Days: No Contact w/Intl Traveler <30 Da: No Traveled to Known Affected Are: No History of Present Illness hx from patient, at bedside, family member at the bedside and ER PA pt is somewhat of poor historian as she is quite tired and does not feel like talking much but is entirely aaox4 answers questions mostly no on review of system per , who himself is elderly, pt went for hydration by Dr Reeves and she was not responding to her nurse and thus advised to come to hospital he reports lately, pt has "quit eating, not drinking much, mostly sleeping at home" she has been weak, and he has been having difficult time taking care of her states that usually their daughter would take care of patient and make sure she eats, goes to appointments however, this time it is his turn to take care of her and she has been home past 3 weeks Review of Systems Except as stated in HPI: all other systems reviewed are Neg Past Family Social History Past Medical History dm ckd gout hx of renal stones Vulvar cancer Past Surgical History hysterectomy c spine sx laminectomy Allergies: Coded Allergies: Penicillins (Verified Allergy, Severe, rash/hives, 11/08/17) Sulfa (Sulfonamide Antibiotics) (Verified Allergy, Severe, rash/hives, ) codeine (Verified Allergy, Severe, rash, 11/08/17) tramadol (Verified Allergy, Severe, itch/legs numb and she fell, 11/08/17) Tetanus Vaccines and Toxoid (Verified Allergy, Mild, Rash, 11/08/17) Physical Exam Vital Signs Vital Signs Date Time Temp Pulse Resp B/P (MAP) Pulse Ox O2 Delivery O2 Flow Rate FiO2 11/08/17 13:06 98 24 156/77 (103) 94 Room Air 11/08/17 12:03 98.1 101 20 135/84 (101) 94 Physical Exam GENERAL: This is a frail elderly lady, lying in bed, pleasant, weak, awake and alert, able to answer questions but is quite tired and soft spoken SKIN: No rashes, ecchymoses or lesions. Cool and dry. HEAD: Atraumatic. Normocephalic. No temporal or scalp tenderness. EYES: No scleral icterus. No injection or drainage. ENT: Nose without bleeding, purulent drainage or septal hematoma. Airway patent. NECK: Trachea midline. No JVD oSupple, nontender, no meningeal signs. CARDIOVASCULAR: Regular rate and rhythm without murmurs, gallops, or rubs. RESPIRATORY: bilaterally decreased air entry at bases, no raiza rales or wheezing GASTROINTESTINAL: Abdomen soft, non-tender, nondistended. No guarding. MUSCULOSKELETAL: Extremities without clubbing, cyanosis, or edema. No calf tenderness. NEUROLOGICAL: Awake and alert. Motor and sensory grossly within normal limits. Normal speech. Laboratory Laboratory Tests Test 11/08/17 12:24 11/08/17 13:26 White Blood Count 11.2 Red Blood Count 3.40 Hemoglobin 9.7 Hematocrit 28.9 Mean Corpuscular Volume 85.0 Mean Corpuscular Hemoglobin 28.4 Mean Corpuscular Hemoglobin Concent 33.4 Red Cell Distribution Width 23.3 Platelet Count 257 Mean Platelet Volume 7.3 Neutrophils (%) (Auto) 88.5 Lymphocytes (%) (Auto) 6.6 Monocytes (%) (Auto) 4.2 Eosinophils (%) (Auto) 0.2 Basophils (%) (Auto) 0.5 Neutrophils # (Auto) 9.9 Lymphocytes # (Auto) 0.7 Monocytes # (Auto) 0.5 Eosinophils # (Auto) 0.0 Basophils # (Auto) 0.1 CBC Comment DIFF FINAL Differential Comment Blood Urea Nitrogen 25 Creatinine 1.33 Random Glucose 248 Total Protein 8.2 Calcium Level 13.2 Sodium Level 131 Potassium Level 5.0 Chloride Level 98 Carbon Dioxide Level 25.1 Anion Gap 8 Estimat Glomerular Filtration Rate 40 Protein Corrected Calcium 12.4 Total Creatine Kinase 9 Troponin I LESS THAN 0.02 Prothrombin Time 11.4 Prothromb Time International Ratio 1.1 Activated Partial Thromboplast Time 25.9 Result Diagram: 11/08/17 1224 11/08/17 1224 Imaging Last [address] 11/08/17 1304 Signed Impressions: Service Date/Time: Wednesday, November 08, 2017 13:57 - CONCLUSION: 1. No acute intracranial abnormality is identified. 2. Chronic changes include generalized atrophy and periventricular white matter low attenuation characteristic of chronic microvascular ischemia. Trey Blair MD CT Angiography 11/08/17 1304 Signed Impressions: Service Date/Time: Wednesday, November 08, 2017 14:02 - CONCLUSION: No evidence of pulmonary embolism. Multiple bilateral lung nodules. Large left effusion with compressive atelectasis in the left lung base. Right hilar and central mediastinal adenopathy. Trey Johnson MD Chest X-Ray 11/08/17 1207 Signed Impressions: Service Date/Time: Wednesday, November 08, 2017 12:35 - CONCLUSION: 1. Left basilar opacity characteristic of moderate pleural effusion and underlying airspace disease. 2. Clear right lung. 3. Mild cardiomegaly. 4. Right-sided [id number]. Clarke Olmos MD Chest X-Ray 11/08/17 0000 Signed Impressions: Service Date/Time: Wednesday, November 08, 2017 16:43 - CONCLUSION: 1. No pneumothorax following left thoracentesis. 2. The left pleural effusion has decreased in size. There is associated compressive atelectasis or consolidation at the left lung base. Trey Blair MD Caprini VTE Risk Assessment Caprini VTE Risk Assessment: Mod/High Risk (score >= 2) Caprini Risk Assessment Model Point Value = 1 Point Value = 2 Point Value = 3 Point Value = 5 Age 41-60 Minor surgery BMI > 25 kg/m2 Swollen legs Varicose veins or History of unexplained or recurrent spontaneous Oral contraceptives or hormone replacement Sepsis (< 1 month) Serious lung disease, including pneumonia (< 1 month) Abnormal pulmonary function Acute myocardial infarction Congestive heart failure (< 1 month) History of inflammatory bowel disease Medical patient at bed rest Age 61-74 Arthroscopic surgery Major open surgery (> 45 min) Laparoscopic surgery (> 45 min) Malignancy Confined to bed (> 72 hours) Immobilizing plaster cast Central venous access Age >= 75 History of VTE Family history of VTE Factor V Leiden Prothrombin [id number] Lupus anticoagulant Anticardiolipin antibodies Elevated serum homocysteine Heparin-induced thrombocytopenia Other congenital or acquired thrombophilia Stroke (< 1 month) Elective arthroplasty Hip, pelvis, or leg fracture Acute spinal cord injury (< 1 month) Prophylaxis Regimen Total Risk Factor Score Risk Level Prophylaxis Regimen 0-1 Low Early ambulation 2 Moderate Order ONE of the following: *Sequential Compression Device (SCD) *Heparin 5000 units SQ BID 3-4 Higher Order ONE of the following medications: *Heparin 5000 units SQ TID *Enoxaparin/Lovenox 40 mg SQ daily (WT < 150 kg, CrCl > 30 mL/min) *Enoxaparin/Lovenox 30 mg SQ daily (WT < 150 kg, CrCl > 10-29 mL/min) *Enoxaparin/Lovenox 30 mg SQ BID (WT < 150 kg, CrCl > 30 mL/min) AND/OR *Sequential Compression Device (SCD) 5 or more Highest Order ONE of the following medications: *Heparin 5000 units SQ TID (Preferred with Epidurals) *Enoxaparin/Lovenox 40 mg SQ daily (WT < 150 kg, CrCl > 30 mL/min) *Enoxaparin/Lovenox 30 mg SQ daily (WT < 150 kg, CrCl > 10-29 mL/min) *Enoxaparin/Lovenox 30 mg SQ BID (WT < 150 kg, CrCl > 30 mL/min) AND *Sequential Compression Device (SCD) Assessment and Plan Assessment and Plan Impression: generalized weakness- secondary to acute illness with malignancy new findings of metastatic disease vulvar cancer on chemo and radiation left pelural effusion- likely malignant hypercalcemia- secondary to dehydration/ and cancer itself consolidative changes on CT - will treat for pneumonia given she is symptomatic with weakness, lethargy per family CKD DM Plan: CT imaging studies personally reviewed ; evidence of metastatic disease which was not known to patient prior palliative care consult for clarification of goals / hospice US guided thoracocentesis for symptom relief will follow ca levels iv hydration if needed after thoracocentesisi cefepime 1g iv q12hrs monitor fingersticks cautious of coverage as pt is likely not going to be eating much dvt prophylaxs with heparin Physician Certification Order for Inpatient Services The services are ordered in accordance with Medicare regulations or non- Medicare payer requirements, as applicable. In the case of services not specified as inpatient-only, they are appropriately provided as inpatient services in accordance with the 2-midnight benchmark. days is the estimated time the patient will need to remain in the hospital, assuming treatment plan goals are met and no additional complications. Magdy Flores MD Nov 08, 2017 15:47
[2017-11-08 16:47] LABS: BACTERIA, URINE RARE /hpf; BILIRUBIN, URINE NEG (NEG); BLOOD, URINE NEG (NEG); GLUCOSE,URINE 150 mg/dL (NEG); HYALINE CAST, URINE 1 /lpf (RARE); KETONE, URINE NEG (NEG); NITRITE,URINE NEG (NEG); SQUAMOUS EPITHELIAL CELL URINE <1 /hpf (0-5); URINE COLOR YELLOW (YELLW/STRAW); URINE LEUKOCYTE ESTERASE SMALL (NEG)
[2017-11-08 16:56] VITALS: BP 164/76; PULSE 96; RESP 23; O2SAT 99
--- NOTE | 2017-11-08 16:56 | HHI.HCPN ---
Mrs. 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 Patient presented to ED on 11/08/17 secondary to confusion, lethargy and slurred speech for the past 2 weeks. CTA negative for PE; however, positive for multiple bilateral lung nodules, mediastinal adenopathy suggestive of metastatic disease. Chest x-ray revealing a left pleural effusion. Palliative care consulted for clarifications of goals of care. Patient seen in emergency room, she was en route to IR for left thoracentesis. Spoke with patient's Jabier and daughter Dora. In this first visit, reviewed the role of palliative care in advanced illness in regards to symptom management as well as support surrounding goals of care and advance care planning. Family receptive to visit. Medical update provided. Family with a very good understanding of patient's overall clinical condition. Reviewed progressive illness status post chemotherapy and radiation treatment. reports that patient's clinical condition has deteriorated within the past few months, worsened over the past few weeks. Patient very weak at home, confused, requiring assistance with ADLs, poor oral intake. Reviewed that oncology consult report is is still pending, however, patient not likely a candidate for any additional systemic therapy given poor performance status. Reviewed the patient's progressive illness is not curable. Family tearful but receptive to ongoing GOC conversation. Patient's to provide copy of patient's advance directives, living will. Reviewed risks, benefits and limitations of CPR, intubation and mechanical ventilation given patient's progressive disease and current clinical status. Family verbalized the patient has been vocal about not wishing life-prolonging measures. Family requesting for no CODE STATUS, DNR/DNI at this time. Hospice philosophy and benefits reviewed at length. Family appears receptive to hospice at home, however, concerns regarding patient's higher level of needs/assistance. Palliative care to meet with patient and family tomorrow 11/09/17 at 10 AM. Full palliative care consultation to follow. JUD Marr. Palliative Care PATTERNMAKER APPRENTICE [employer]. . . Irma Mathis Nov 08, 2017 16:56
--- NOTE | 2017-11-08 17:01 | RADRPT ---
EXAM DATE/TIME: 11/08/2017 16:43 [facility] COMPARISON: CHEST PA & LAT, November 08, 2017, 12:35. INDICATIONS : Post thoracentesis. MEDICAL HISTORY : Renal calculi. Vulvar cancer. SURGICAL HISTORY : Infusaport. ENCOUNTER: Subsequent ACUITY: 1 day PAIN SCORE: 2/10 LOCATION: Left chest FINDINGS: Portable upright expiratory view of the chest demonstrates a normal-sized cardiac silhouette. Infuse- a-Port remains present. EKG lines overlie the patient. No pneumothorax is present. There is a small l eft basilar pleural-parenchymal opacity, decreased in size from the prior study. Right lung demonstra jinny no abnormality. CONCLUSION: 1. No pneumothorax following left thoracentesis. 2. The left pleural effusion has decreased in size. There is associated compressive atelectasis or co nsolidation at the left lung base. Trey Blair MD on November 08, 2017 at 16:59 Board Certified Radiologist. This report was verified electronically.
[2017-11-08 17:15] VITALS: BP 159/74; PULSE 94; RESP 25; O2SAT 98
--- NOTE | 2017-11-08 17:55 | PD.CONS ---
History of Present Illness Service print manager/onc Consult Requested By REJI Munoz Reason for Consult metastatic vulvar cancer Primary Care Physician Unknown Diagnoses: (1) Squamous cell carcinoma of vulva (2) Pleural effusion (3) Lung nodules (4) Hypercalcemia History of Present Illness This is a 67 year old female know to print manager/onc clinic for locally advanced vulvar cancer. She recently completed treatment with radiation and weekly chemotherapy in [facility]. She presents to ER today after contacting out office, her daughter reports that Mrs. Carpenter has been not eating/drinking, confused with increased weakness. Recently she was hospitalized for anemia and dehydration she recovered with rehydration and supportive care but since her discharge from the hospital, her reports, her health has been declining. He reports she has been sleeping most of the day, not eating or drinking and reports pain on left side. I discussed with patient and family at bedside in ER that the CT scan of her chest did not show PE but it did states she has a large plural effusion and metastatic disease to both lungs. We are also concerned that we have some degree of metastatic disease to the bone given that her calcium and protein corrected calcium are both elevated. I explained given the metastatic disease and advancement of disease despite treatment and her very poor performance status her prognosis is very poor. We feel that trying to improve her quality of life should be the goal at this time, and in Hospice care hopefully that can be achieved. The patient and her family agree to speak with hospice. It is notable that i did speak with patient's daughter Dora via the telephone and gave her update on imaging, she also agreed to speak with Hospice. Hospice was given her number for primary contact. Review of Systems ROS Limitations: Altered Mental Status Constitutional: COMPLAINS OF: Fatigue, Change in appetite Cardiovascular: COMPLAINS OF: Chest pain Psychiatric: COMPLAINS OF: Confusion Past Family Social History Allergies: Coded Allergies: Penicillins (Verified Allergy, Severe, rash/hives, 11/08/17) Sulfa (Sulfonamide Antibiotics) (Verified Allergy, Severe, rash/hives, ) codeine (Verified Allergy, Severe, rash, 11/08/17) tramadol (Verified Allergy, Severe, itch/legs numb and she fell, 11/08/17) Tetanus Vaccines and Toxoid (Verified Allergy, Mild, Rash, 11/08/17) Past Medical History diabetes gout kidney stones vulvar cancer uterine fibroids Past Surgical History cervical laminectomy plates in c spine hysterectomy Reported Medications per EMR Active Ordered Medications Current Medications Sodium Chloride 1,000 ml @ 1,000 mls/hr Q1H IV Last administered on 11/08/17at 13:36; Start 11/08/17 at 13:11; Stop 11/08/17 at 14:10; Status DC Iodixanol (VISIPAQUE 320 INJ (Rad CT)) 47 ml STK-MED ONCE IVCONTRAST Last administered on 11/08/17at 14:05; Start 11/08/17 at 11:55; Stop 11/08/17 at 14:02 ; Status DC Sodium Chloride (NS Flush) 2 ml UNSCH PRN IV FLUSH FLUSH AFTER USING IV ACCESS ; Start 11/08/17 at 15:15 Sodium Chloride (NS Flush) 2 ml BID IV FLUSH ; Start 11/08/17 at 21:00 Ondansetron HCl (Zofran Inj) 4 mg Q6H PRN IVP NAUSEA OR VOMITING; Start at 15:15 Naloxone HCl (Narcan Inj) 0.4 mg UNSCH PRN IV PUSH SEE LABEL COMMENTS; Start at 15:15 Social History lives with has 3 children Physical Exam Vital Signs Vital Signs Date Time Temp Pulse Resp B/P (MAP) Pulse Ox O2 Delivery O2 Flow Rate FiO2 11/08/17 16:56 96 23 164/76 (105) 99 Nasal Cannula 3.00 11/08/17 12:03 98.1 Vital Signs Date Time Temp Pulse Resp B/P (MAP) Pulse Ox O2 Delivery O2 Flow Rate FiO2 11/08/17 16:56 96 23 164/76 (105) 99 Nasal Cannula 3.00 11/08/17 13:06 98 24 156/77 (103) 94 Room Air 11/08/17 12:03 98.1 101 20 135/84 (101) 94 Physical Exam GENERAL: This is a well-nourished, well-developed patient, in no apparent distress. SKIN: No rashes, ecchymoses or lesions. Cool and dry. HEAD: Atraumatic. Normocephalic. No temporal or scalp tenderness. EYES: Pupils equal round and reactive. Extraocular motions intact. CARDIOVASCULAR: Regular rate and rhythm without murmurs, gallops, or rubs. RESPIRATORY: no accessory muscle use, decreased to LLL GASTROINTESTINAL: Abdomen soft, non-tender, nondistended. MUSCULOSKELETAL: Extremities without clubbing, cyanosis, or edema. NEUROLOGICAL: Awake and alert. Normal speech. Laboratory Laboratory Tests Test 11/08/17 12:24 11/08/17 13:26 11/08/17 15:35 11/08/17 16:40 White Blood Count 11.2 TH/MM3 Red Blood Count 3.40 MIL/MM3 Hemoglobin 9.7 GM/DL Hematocrit 28.9 % Mean Corpuscular Volume 85.0 FL Mean Corpuscular Hemoglobin 28.4 PG Mean Corpuscular Hemoglobin Concent 33.4 % Red Cell Distribution Width 23.3 % Platelet Count 257 TH/MM3 Mean Platelet Volume 7.3 FL Neutrophils (%) (Auto) 88.5 % Lymphocytes (%) (Auto) 6.6 % Monocytes (%) (Auto) 4.2 % Eosinophils (%) (Auto) 0.2 % Basophils (%) (Auto) 0.5 % Neutrophils # (Auto) 9.9 TH/MM3 Lymphocytes # (Auto) 0.7 TH/MM3 Monocytes # (Auto) 0.5 TH/MM3 Eosinophils # (Auto) 0.0 TH/MM3 Basophils # (Auto) 0.1 TH/MM3 CBC Comment DIFF FINAL Differential Comment Blood Urea Nitrogen 25 MG/DL Creatinine 1.33 MG/DL Random Glucose 248 MG/DL Total Protein 8.2 GM/DL Calcium Level 13.2 MG/DL Sodium Level 131 MEQ/L Potassium Level 5.0 MEQ/L Chloride Level 98 MEQ/L Carbon Dioxide Level 25.1 MEQ/L Anion Gap 8 MEQ/L Estimat Glomerular Filtration Rate 40 ML/MIN Protein Corrected Calcium 12.4 MG/DL Total Creatine Kinase 9 U/L Troponin I LESS THAN 0.02 NG/ML Prothrombin Time 11.4 SEC Prothromb Time International Ratio 1.1 RATIO Activated Partial Thromboplast Time 25.9 SEC Urine Color YELLOW Urine Turbidity CLEAR Urine pH 5.0 Urine Specific [place] 1.023 Urine Protein TRACE mg/dL Urine Glucose (UA) 150 mg/dL Urine Ketones NEG mg/dL Urine Occult Blood NEG Urine Nitrite NEG Urine Bilirubin NEG Urine Urobilinogen LESS THAN 2.0 MG/DL Urine Leukocyte Esterase SMALL Urine RBC 1 /hpf Urine WBC 9 /hpf Urine Squamous Epithelial Cells <1 /hpf Urine Bacteria RARE /hpf Urine Hyaline Casts 1 /lpf Microscopic Urinalysis Comment CATH-CULTURE IND Pleural Fluid pH 7.5 Laboratory Tests Test 11/08/17 12:24 11/08/17 13:26 11/08/17 15:35 White Blood Count 11.2 Red Blood Count 3.40 Hemoglobin 9.7 Hematocrit 28.9 Mean Corpuscular Volume 85.0 Mean Corpuscular Hemoglobin 28.4 Mean Corpuscular Hemoglobin Concent 33.4 Red Cell Distribution Width 23.3 Platelet Count 257 Mean Platelet Volume 7.3 Neutrophils (%) (Auto) 88.5 Lymphocytes (%) (Auto) 6.6 Monocytes (%) (Auto) 4.2 Eosinophils (%) (Auto) 0.2 Basophils (%) (Auto) 0.5 Neutrophils # (Auto) 9.9 Lymphocytes # (Auto) 0.7 Monocytes # (Auto) 0.5 Eosinophils # (Auto) 0.0 Basophils # (Auto) 0.1 CBC Comment DIFF FINAL Differential Comment Blood Urea Nitrogen 25 Creatinine 1.33 Random Glucose 248 Total Protein 8.2 Calcium Level 13.2 Sodium Level 131 Potassium Level 5.0 Chloride Level 98 Carbon Dioxide Level 25.1 Anion Gap 8 Estimat Glomerular Filtration Rate 40 Protein Corrected Calcium 12.4 Total Creatine Kinase 9 Troponin I LESS THAN 0.02 Prothrombin Time 11.4 Prothromb Time International Ratio 1.1 Activated Partial Thromboplast Time 25.9 Urine Color YELLOW Urine Turbidity CLEAR Urine pH 5.0 Urine Specific [place] 1.023 Urine Protein TRACE Urine Glucose (UA) 150 Urine Ketones NEG Urine Occult Blood NEG Urine Nitrite NEG Urine Bilirubin NEG Urine Urobilinogen LESS THAN 2.0 Urine Leukocyte Esterase SMALL Urine RBC 1 Urine WBC 9 Urine Squamous Epithelial Cells <1 Urine Bacteria RARE Urine Hyaline Casts 1 Microscopic Urinalysis Comment CATH-CULTURE IND Date/Time Source Procedure Growth Status 11/08/17 15:35 Blood Peripheral Aerobic Blood Culture Pending Received 11/08/17 15:35 Blood Peripheral Anaerobic Blood Culture Pending Received 11/08/17 15:35 Urine Catheterized Urine Urine Culture Pending Received Result Diagram: 11/08/17 1224 11/08/17 1224 Imaging Last Impressions Head CT 11/08/17 1304 Signed Impressions: Service Date/Time: Wednesday, November 08, 2017 13:57 - CONCLUSION: 1. No acute intracranial abnormality is identified. 2. Chronic changes include generalized atrophy and periventricular white matter low attenuation characteristic of chronic microvascular ischemia. Trey Blair MD CT Angiography 11/08/17 1304 Signed Impressions: Service Date/Time: Wednesday, November 08, 2017 14:02 - CONCLUSION: No evidence of pulmonary embolism. Multiple bilateral lung nodules. Large left effusion with compressive atelectasis in the left lung base. Right hilar and central mediastinal adenopathy. Trey Johnson MD Chest X-Ray 11/08/17 1207 Signed Impressions: Service Date/Time: Wednesday, November 08, 2017 12:35 - CONCLUSION: 1. Left basilar opacity characteristic of moderate pleural effusion and underlying airspace disease. 2. Clear right lung. 3. Mild cardiomegaly. 4. Right-sided [id number]. Clarke Olmos MD Course Patient to IR for drainage of plural effusion to be diagnostic and therapeutic. Assessment and Plan Problem List: (1) Lung nodules ICD Codes: R91.8 - Other nonspecific abnormal finding of lung field Status: Chronic Plan: metastatic disease to lungs Hospice was contacted from print manager/onc clinic (2) Pleural effusion ICD Codes: J90 - Pleural effusion, not elsewhere classified Status: Acute Plan: IR to drain and sent for cytology (3) Squamous cell carcinoma of vulva ICD Codes: C51.9 - Malignant neoplasm of vulva, unspecified Status: Chronic Plan: poor prognosis given persistent and metastatic disease despite treatment. Palliative care consulted I contacted Hospice from print manager/onc clinic Physician Attestation discussed with Dr. Reeves and he is in agreement. Patient and family met with Dr. Reeves is ER please see his consult note. Santos Charles Nov 08, 2017 17:55
[2017-11-08 18:11] LABS: TOTAL PROTEIN,PLEURAL FLUID 5.3 GM/DL
[2017-11-08 19:06] LABS: PLEURAL FLUID EOS 1 %; PLEURAL FLUID LYMPHS 10 %; PLEURAL FLUID MESOTHELIAL 2 %; PLEURAL FLUID MONOS 7 %; PLEURAL FLUID POLYS (SEGS) 80 %
[2017-11-08 19:07] LABS: PLEURAL FLUID RBC 2373 /MM3 (0-0); PLEURAL FLUID WBC 3690 /MM3 (0-10)
[2017-11-08 20:00] VITALS: BP 159/72; PULSE 95; RESP 22; TEMP 98.7; O2SAT 93
[2017-11-08] MEDS: SODIUM CHLORIDE 0.9% FLUSH 10 ML FLUSH IV FLUSH SCH (21:00)
[2017-11-08] MEDS ORDERED: ACETAMINOPHEN/HYDROcodone 325 MG/5 MG TAB PO ONE (23:45)
[2017-11-08] MEDS ORDERED: GLUCAGON 1 MG/ML VIAL OTHER PRN (23:45)
[2017-11-08] MEDS ORDERED: DEXTROSE 50% IN WATER 50 ML VIAL(D50) IV PUSH PRN (23:45)
[2017-11-09] VITALS: BP 161/77; PULSE 104; RESP 21; TEMP 98.6; O2SAT 94
[2017-11-09 04:00] VITALS: BP 161/80; PULSE 95; RESP 22; TEMP 96.6; O2SAT 94
[2017-11-09] MEDS: CEFEPIME INJ 1,000 MG in SODIUM CHLORIDE 0.9% INJ 100 ML IV SCH ×2 (04:31→14:54)
[2017-11-09] MEDS: HEPARIN SODIUM - SQ 10,000 UNITS/ML VIAL SQ SCH ×2 (04:32→14:00)
[2017-11-09 07:02] LABS: AUTOMATED NEUTROPHIL # 8.5 TH/MM3 (1.8-7.7); BASOPHIL % 0.2 % (0.0-2.0); EOSINOPHIL # 0.1 TH/MM3 (0-0.4); EOSINOPHIL % 0.7 % (0.0-4.0); HEMATOCRIT 27.2 % (35.0-46.0); HEMOGLOBIN 9.3 GM/DL (11.6-15.3); LYMPH % 7.2 % (9.0-44.0); LYMPHOCYTE # 0.7 TH/MM3 (1.0-4.8); MEAN CELL VOLUME 84.7 FL (80.0-100.0); MEAN CORPUSCULAR HGB CONC 34.2 % (32.0-36.0); MEAN PLATELET VOLUME 7.5 FL (7.0-11.0); MONO % 7.6 % (0.0-8.0); MONOCYTE # 0.8 TH/MM3 (0-0.9); NEUT % 84.3 % (16.0-70.0); PLATELET COUNT 242 TH/MM3 (150-450); RED BLOOD COUNT 3.21 MIL/MM3 (4.00-5.30); RED CELL DISTRIBUTION WIDTH 23.3 % (11.6-17.2); WHITE BLOOD COUNT 10.1 TH/MM3 (4.0-11.0)
[2017-11-09 07:17] LABS: BICARBONATE 26.4 MEQ/L (21.0-32.0); CREATININE 1.17 MG/DL (0.50-1.00)
[2017-11-09 07:33] LABS: TOTAL PROTEIN 7.3 GM/DL (6.4-8.2)
[2017-11-09 08:00] VITALS: BP 159/83; PULSE 102; RESP 18; TEMP 97.3; O2SAT 93
[2017-11-09 08:18] LABS: CALCIUM-PROTEIN CORRECTED 12.9 MG/DL (8.5-10.1)
--- NOTE | 2017-11-09 08:37 | MB ---
cc: Radha Reeves MD, Twethida 0 MD Deshmukh, Pratima MD Visvalingham, Bhanu MD Graham,Garcia RODRIGUEZ DATE OF CONSULT: 11/08/2017 REASON FOR CONSULTATION: History of squamous cell carcinoma of the vulva. REASON FOR EMERGENCY ROOM VISIT: Shortness of breath, chest pain, altered mental status, decreased oral intake, failure to thrive. This is patient is seen. Our findings are reviewed. She is counseled by me and examined by me in conjunction with our nurse practitioner (Santos Charles). I agree with her findings, assessment and plan of care. HISTORY OF PRESENT ILLNESS: This is a 67-year-old female who came under our care for extensive squamous cell carcinoma of the vulva. At the time of diagnosis, it had replaced most of the external genitalia, had infiltrated into the subvulvar and subvaginal tissue with extension toward the pelvic sidewalls. There were enlarged fixed groin lymph nodes bilaterally and radiographically enlarged and suspicious pelvic lymph nodes. She was counseled, treated with radiation therapy and cisplatin chemotherapy. Her treatment was under the care of her physicians in [facility]. Her more recent history is notable for the aforementioned symptoms. In fact, she was seen 2 weeks ago, admitted to the hospital where she was hydrated and provided supported care. She was excluded for having a pulmonary emboli. She was excluded for having a cardiac event. She was counseled regarding what was known at that time, recommendations for treatment and/or followup and was discharged to home. She presented again yesterday at the Emergency Room. Family members report that she has been confused, not her usual baseline self with respect to mental status, in addition to the fact that she has become almost completely bedridden, has not been eating or drinking and also been reporting that she is hard to catch her breath, short of breath and reporting chest pain. She is seen now in the Emergency Room accompanied by her and her sister for further evaluation and recommendations regarding these findings. PAST MEDICAL HISTORY, SURGICAL HISTORY, MEDICATIONS, REVIEW OF SYSTEMS, ALLERGIES AND PERTINENT DATA: All reviewed. I do not have any new information to add to these findings as reported. LABORATORY STUDIES ON ADMISSION: White count 11.2, H and H 9.7 and 28.9, platelet count 257. Electrolytes notable for an elevated protein, corrected calcium of 13.2, potassium is 5, sodium 131, BUN and creatinine are 25 and 1.33. INR 1.1. IMAGING STUDIES: Head CT shows no acute intracranial abnormality, no bleeding, no tumor. There are some microvascular changes consistent with age. CT angiography reports no pulmonary emboli; however, multiple pulmonary nodules are detected. Chest x-ray, as well as the CT angiogram, also confirm plural effusions quite prominent on the left side, mild cardiomegaly. PHYSICAL EXAMINATION: VITAL SIGNS: She is afebrile, pulse ranging from 98-104, respirations 21-25, blood pressure 156-159/72-77, O2 saturations 93-98% on 2 or 3 liters of oxygen. GENERAL: She is resting comfortably. She recognizes me and states my name right away, so she seems oriented. She knows where she is although, her thought and speech is a little slow. Her respirations are mildly labored at rest. HEENT: Pupils equal, round and reactive to light. Mucous membranes are pale and dry. LYMPHATICS: No overt supraclavicular or cervical adenopathy. BACK: Without CVA tenderness or spinal point tenderness. LUNGS: Clear at the apices, mostly clear on the right side with some decreased air exchange on the right, decreased air exchange and dullness on the left side. ABDOMEN: Nonacute, nontender. PELVIC EXAM: Deferred given recent prior exam. EXTREMITIES: No palpable cords. Nontender. Time spent in discussion with Sapphire Carpenter and her family, reviewing the findings in her case today. I am sorry she is feeling poorly. Some new findings are that of pulmonary nodules and the pleural effusion, all of which are suspicious for metastatic disease to the lungs. The pleural effusion is certainly contributing to her shortness of breath and there may therapeutic value in having that drained. We can also send that fluid for cytology assessment to see if it can confirm our clinical suspicion of metastatic disease. Furthermore, her calcium is elevated. That can contribute to mental status changes. With that comes significant dehydration either before or as a result of the elevated calcium, so normal saline hydration and if that does not correct it, then intervention such as pamidronate or other agent to try to reduce the calcium may become necessary. With respect to her overall status, we reviewed the advance nature of her disease at the time of diagnosis and despite treatment to the vulvar area and pelvis, there clinically seems to be persistent disease and now there seem to be new metastatic disease detected in the lungs. This could not be treated with radiation. If treatment were to be considered, it would be systemic chemotherapy, which requires a good performance status, adequate renal function (creatinine currently 1.33) and an overall desire to consider treatment. Conversely, could consider maximizing palliative efforts to keep her as comfortable as possible, alleviate the symptoms and we talked about considering hospice consult to be educated and learn the resources that are available from hospice, either in the hospital or a care cent or home. We also talked about clarifying her desire with respect to code status. Discussion ensued, questions were answered. They all agreed with hospice consult. They seem to the understand the findings and the difficult nature of this situation and the unlikely significant of sustained response to additional treatment, as well as the seeming inability of her to tolerate treatment. More questions were asked and answered. They expressed good understanding and agreed. ASSESSMENT: 1. 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 2. Symptomatic large left pleural effusion, multiple pulmonary nodules. 3. Metabolic abnormalities including hypercalcemia, elevated creatinine with elevated potassium, low sodium. 4. Shortness of breath, chest pain, overall diminished performance status, decreased oral intake, failure to thrive. 5. Extensive discussion. PLAN: 1. Consult interventional radiology for therapeutic and diagnostic drainage of pleural effusion. Send fluid for cytology. Cultures if they feel these are indicated. 2. Consider blood cultures, urine cultures given mental status changes to exclude the possibility of sepsis. 3. IV fluids, correction of electrolytes, consider medical intervention to reduce her calcium if hydration does not normalize calcium. 4. Consult hospice for education, evaluation, and management. 5. Maximize palliative and supportive care. Thank you for the consultation. We will follow along in her care. MD SVETA Weeks/DAKOTA , 07:38 AM , 08:35 AM
[2017-11-09] MEDS: SODIUM CHLORIDE 0.9% FLUSH 10 ML FLUSH IV FLUSH SCH (08:48)
[2017-11-09] MEDS ORDERED: CARVEDILOL 6.25 MG TAB PO SCH (09:00)
--- NOTE | 2017-11-09 09:58 | HHI.PR ---
Subjective Remarks Follow-up metastasis vulvar squamous cell cancer/aspiration pneumonia 11/09/17-patient seen and examined, alert and oriented to self as well as placed and able to name her daughter's name. However per daughter patient still weak. Denies any significant shortness of breath and currently afebrile Objective Vitals Vital Signs Date Time Temp Pulse Resp B/P (MAP) Pulse Ox O2 Delivery O2 Flow Rate FiO2 11/09/17 08:00 97.3 102 18 159/83 (108) 93 11/09/17 04:00 96.6 95 22 161/80 (107) 94 11/09/17 00:00 98.6 104 21 161/77 (105) 94 11/08/17 20:00 98.7 95 22 159/72 (101) 93 11/08/17 17:15 94 25 159/74 (102) 98 Nasal Cannula 2.00 11/08/17 16:56 96 23 164/76 (105) 99 Nasal Cannula 3.00 11/08/17 13:06 98 24 156/77 (103) 94 Room Air 11/08/17 12:03 98.1 101 20 135/84 (101) 94 I/O 11/08/17 11/08/17 11/08/17 11/09/17 11/09/17 11/09/17 07:00 15:00 23:00 07:00 15:00 23:00 Intake Total 1000 ml 0 ml Output Total 475 ml Balance 1000 ml -475 ml Intake Oral 0 ml IV Total 1000 ml Output Urine Total 475 ml # Bowel Movements 0 Result Diagram: 11/09/17 0428 11/09/17 0428 Imaging Last Impressions Head CT 11/08/17 1304 Signed Impressions: Service Date/Time: Wednesday, November 08, 2017 13:57 - CONCLUSION: 1. No acute intracranial abnormality is identified. 2. Chronic changes include generalized atrophy and periventricular white matter low attenuation characteristic of chronic microvascular ischemia. Trey Blair MD CT Angiography 11/08/17 130 Signed Impressions: Service Date/Time: Wednesday, November 08, 2017 14:02 - CONCLUSION: No evidence of pulmonary embolism. Multiple bilateral lung nodules. Large left effusion with compressive atelectasis in the left lung base. Right hilar and central mediastinal adenopathy. Trey Johnson MD Chest X-Ray 11/08/17 1207 Signed Impressions: Service Date/Time: Wednesday, November 08, 2017 12:35 - CONCLUSION: 1. Left basilar opacity characteristic of moderate pleural effusion and underlying airspace disease. 2. Clear right lung. 3. Mild cardiomegaly. 4. Right-sided [id number]. Clarke Olmos MD Objective Remarks GENERAL: NAD SKIN: Warm and dry. HEAD: Normocephalic. EYES: No scleral icterus. No injection or drainage. NECK: Supple, trachea midline. No JVD or lymphadenopathy. CARDIOVASCULAR: Regular rate and rhythm without murmurs, gallops, or rubs. RESPIRATORY: Breath sounds decrease bilaterally. No accessory muscle use. GASTROINTESTINAL: Abdomen soft, non-tender, nondistended. MUSCULOSKELETAL: No cyanosis, or edema. BACK: Nontender without obvious deformity. No CVA tenderness. Procedures Ultrasound-guided left thoracentesis A/P Problem List: (1) Squamous cell carcinoma of vulva ICD Code: C51.9 - Malignant neoplasm of vulva, unspecified Status: Chronic (2) Aspiration pneumonia ICD Code: J69.0 - Pneumonitis due to inhalation of food and vomit (3) Pleural effusion ICD Code: J90 - Pleural effusion, not elsewhere classified Status: Acute (4) Hypercalcemia ICD Code: E83.52 - Hypercalcemia Status: Acute Assessment and Plan 67 year-old female with Squamous carcinoma of vulva with metastasis Appreciate input from [facility] consultation pending today Aspiration pneumonia Currently on IV cefepime Maintain oxygen saturation above 92% Metabolic encephalopathy From above processes Left pleural effusion Status post ultrasound-guided left thoracentesis 11/08/17 Other chronic medical conditions Continue current medical management Discharge Planning Pending Evaluation from hospice today Maxim Stark MD Nov 09, 2017 09:58
[2017-11-09] MEDS ORDERED: ALUMINUM/MAGNESIUM/SIMETH 30 ML CUP PO PRN (10:00)
[2017-11-09] MEDS ORDERED: ONDANSETRON HCL 4 MG/2 ML VIAL IV PUSH PRN (10:00)
[2017-11-09] MEDS ORDERED: ACETAMINOPHEN 325 MG TAB PO PRN (10:00)
[2017-11-09 10:53] VITALS: O2SAT 95
--- NOTE | 2017-11-09 11:34 | EKG ---
Date Performed: 11/08/2017 Time Performed: 12:13:55 PTAGE: 67 years EKG: Sinus rhythm NORMAL ECG Since the prior tracing, there has been no significant change PREVIOUS TRACING : 10/25/2017 11.31 DOCTOR: Nenita Palm Interpretating Date/Time 11/09/2017 11:31:34
[2017-11-09 12:00] VITALS: BP 140/76; PULSE 78; RESP 17; TEMP 95.8; O2SAT 97
--- NOTE | 2017-11-09 13:46 | PD.CONS ---
Consult Service Palliative Care Consult Requested By Dr. Sandra MD. Primary Care Physician Griselda Murphy MD Reason for Consultation a. To assist with evaluation and management of symptoms including: Shortness of breath, pain and debility. b. To assist medical decision maker(s) with: better understanding of current medical conditions; weighing benefits/burdens of medical treatment options; making medical treatment decisions. . HPI History of Present Illness Mrs. 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 Patient presented to ED on 11/08/17 secondary to confusion, lethargy and slurred speech for the past 2 weeks. CTA negative for PE; however, positive for multiple bilateral lung nodules, mediastinal adenopathy suggestive of metastatic disease. Chest x-ray revealing a left pleural effusion and underlying airspace disease. CT of head negative for acute process. Chronic changes to include generalized atrophy noted. Laboratory workup revealing WBC 11.2, Hgb 9.7, platelet count 257. Sodium 131, potassium 5.0, BUN/creatinine 25 /1.33, corrected calcium 12.4. UA negative for nitrates, small leukocytes. Patient underwent left lung thoracentesis and was admitted for further management. Palliative care consulted for clarifications of goals of care. Follow-up chest x-ray s/p thoracentesis reveals a left pleural effusion has decreased in size. BUSINESS INFORMATION ANALYST/oncology, Dr. Reeves consulted. Patient with squamous cell carcinoma of the vulva mostly at the external genitalia at time of diagnosis. Illness progression to include subvulvar and subvaginal tissue with extension towards the pelvic sidewalls. Progression of healing is included in groin lymph nodes bilaterally and pelvic lymph nodes. Patient was treated with systemic chemotherapy and radiation. Patient previously on cisplatin, switched to carboplatin secondary to nephrotoxicity. Clinical course complicated by progressive physical decline, poor oral intake, nausea and vomiting. Patient with recent hospitalization from 10/25/17 t2 10/27/17 secondary to UTI, SIRS. PE was rule out during that admission. Patient was subsequently discharged home. As per Dr. Reeves notes, patient not a current candidate for palliative chemotherapy given poor performance status. Supportive management recommended. Hospice has been previously introduced by Dr. Reeves. Palliative care met with patient's family yesterday while in the ED. agreed to family meeting this morning. Met with patient, Jabier and daughter Dora at bedside. Patient alert and oriented to self, intermittently confused , lethargic. Patient endorsing feeling very weak, endorsing pain to right shoulder and arm. Denies nausea, vomiting or abdominal discomfort. Medical update provided. Family with a very good understanding of patient's overall clinical condition. Reviewed progressive illness status post chemotherapy and radiation treatment. reports that patient's clinical condition has deteriorated within the past few months, worsened over the past few weeks. Patient very weak at home, confused, requiring assistance with ADLs, poor oral intake. Reviewed that patient's condition is terminal and incurable. Patient' s verbalize having difficulty with terminal prognosis. Tearful, appropriately grieving. Reviewed recommendations for supportive care given overall poor prognosis and increased symptom burden. Discussed hospice philosophy and benefits. Family wishing to meet with hospice as they are considering hospice care center for symptom management and end-of-life care. Ongoing emotional support and active listening provided to patient and family. Family receptive to palliative care follow-ups as needed. . Function/Cognitive Trajectory reports that patient has been having progressive physical decline to include requiring assistance with ADLs. Ambulating with 4 wheeled walker. Persistent confusion for the past 2-4 weeks. . Review of Systems ROS Limitations: Altered Mental Status, Poor Historian Constitutional: COMPLAINS OF: Fatigue, Weight loss, Change in appetite, Pain, Generalized weakness, DENIES: Fever Endocrine: DENIES: Heat/cold intolerance Ears, nose, mouth, throat: DENIES: Hearing loss, Nasal discharge, Ear Pain, Running Nose, Epistaxis Respiratory: COMPLAINS OF: Shortness of breath, DENIES: Sputum production Cardiovascular: COMPLAINS OF: Dyspnea on Exertion, Orthopnea Gastrointestinal: COMPLAINS OF: Constipation, DENIES: Diarrhea, Nausea, Vomiting, Difficulty Swallowing Genitourinary: COMPLAINS OF: Urgency, Vaginal discharge Musculoskeletal: DENIES: Muscle aches, Stiffness Integumentary: DENIES: Pruritus, Rash Hematologic/Lymphatics: COMPLAINS OF: Bruising Immunologic/Allergic: DENIES: Eczema Neurologic: DENIES: Headache, Localized weakness, Seizures, Speech Problems, Tremor Psychiatric: COMPLAINS OF: Confusion, DENIES: Anxiety, Agitation Past Family Social History Coded Allergies: Penicillins (Verified Allergy, Severe, rash/hives, 11/08/17) Sulfa (Sulfonamide Antibiotics) (Verified Allergy, Severe, rash/hives, ) codeine (Verified Allergy, Severe, rash, 11/08/17) tramadol (Verified Allergy, Severe, itch/legs numb and she fell, 11/08/17) Tetanus Vaccines and Toxoid (Verified Allergy, Mild, Rash, 11/08/17) Past Medical History Squamous cell carcinoma of vulva Diabetes mellitus Gout Anxiety . Past Surgical History Hysterectomy c spine sx Laminectomy MediPort placement . Reported Medications Alprazolam 0.5 Mg Tab 0.5 Mg PO Q6H PRN Allopurinol 300 Mg Tab 450 Mg PO DAILY Carvedilol 6.25 Mg Tab 6.25 Mg PO BID Metformin (Metformin HCl) 1,000 Mg Tab 1,000 Mg PO BIDPC Novolog Inj (Insulin Aspart) 1,000 Unit/10 Ml Vial Units SQ TID . Current Medications Medications (Trade) Dose Ordered Sig/Ghualm Route Start Time Stop Time Status Last Admin (NS Flush) 2 ml UNSCH PRN IV FLUSH 11/08/17 15:15 (NS Flush) 2 ml BID IV FLUSH 11/08/17 21:00 11/09/17 08:48 (Zofran Inj) 4 mg Q6H PRN IVP 11/08/17 15:15 (Narcan Inj) 0.4 mg UNSCH PRN IV PUSH 11/08/17 15:15 (D50w (Vial) Inj) 50 ml UNSCH PRN IV PUSH 11/08/17 23:45 (Glucagon Inj) 1 mg UNSCH PRN OTHER 11/08/17 23:45 Cefepime HCl 1000 mg/Sodium Chloride 100 ml @ 200 mls/hr Q12H IV 11/09/17 04:00 11/09/17 04:31 (Heparin Inj) 5,000 units Q8HR SQ 11/09/17 06:00 11/09/17 04:32 (Coreg) 6.25 mg BID PO 11/09/17 09:00 11/09/17 08:47 (Tylenol) 650 mg Q4H PRN PO 11/09/17 10:00 (Zofran Inj) 4 mg Q6H PRN IV PUSH 11/09/17 10:00 (Mag-Al Plus Susp Liq) 30 ml Q6H PRN PO 11/09/17 10:00 Family History Patient has 1 daughter who is alive and well. . Substance Use Tobacco: Never smoked. Alcohol: None. Prescription med abuse: None. Illicits: None. . Psychosocial History Patient is originally from [facility]. for the past 52 years. Has 1 daughter who lives locally. 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 . Spiritual/Cultural Factors Gnosticist juan ramon. . Living Will: Completed, but not made available Health Care Surrogate: Completed, but not made available Health Care Surrogate(s): Family reports that advance directives have been completed. Daughter Dora Gibbs is designated healthcare surrogate decision maker. Pending copy of AD. . Family/friends goals: DNR/DNI. Family wishing for supportive management. Considering hospice. . Ethical and Legal Issues No ethical legal issues identified. . Physical Exam Vital Signs Date Time Temp Pulse Resp B/P (MAP) Pulse Ox O2 Delivery O2 Flow Rate FiO2 11/09/17 10:53 95 Nasal Cannula 2.00 11/09/17 08:00 97.3 102 18 159/83 (108) 93 11/09/17 04:00 96.6 95 22 161/80 (107) 94 11/09/17 00:00 98.6 104 21 161/77 (105) 94 11/08/17 20:00 98.7 95 22 159/72 (101) 93 11/08/17 17:15 94 25 159/74 (102) 98 Nasal Cannula 2.00 11/08/17 16:56 96 23 164/76 (105) 99 Nasal Cannula 3.00 11/08/17 13:06 98 24 156/77 (103) 94 Room Air Exam CONSTITUTIONAL/GENERAL: This is an elderly female in no acute distress. Frail- looking. TUBES/LINES/DRAINS: Nasal cannula, PIV. SKIN: No jaundice, rashes, or lesions. Ecchymoses on upper extremities. No wounds seen anteriorly. Skin temperature appropriate. Not diaphoretic. HEAD: Atraumatic. Normocephalic. EYES: Pupils equal and round and reactive. Extraocular motions intact. No scleral icterus. No injection or drainage. ENT: Hearing grossly normal. Nose without bleeding or purulent drainage. Throat without visible erythema, exudates, masses, or lesions. NECK: Trachea midline. Supple, nontender. CARDIOVASCULAR: Regular rate and rhythm. No JVD. Peripheral pulses symmetric. RESPIRATORY/CHEST: Symmetric, unlabored respirations. Clear to auscultation. Breath sounds equal bilaterally. GASTROINTESTINAL: Abdomen soft, non-tender, nondistended. No guarding. Bowel sounds present. GENITOURINARY: Without palpable bladder distension. MUSCULOSKELETAL: Extremities without clubbing, cyanosis, or edema. No mottling or clubbing. NEUROLOGICAL: Awake and alert to self. Confused, lethargic. Moves all extremities. PSYCHIATRIC: Calm. . Diagnostic Tests Laboratory Laboratory Tests Test 11/08/17 12:24 11/08/17 13:26 11/08/17 15:35 11/08/17 16:40 White Blood Count 11.2 TH/MM3 (4.0-11.0) Red Blood Count 3.40 MIL/MM3 (4.00-5.30) Hemoglobin 9.7 GM/DL (11.6-15.3) Hematocrit 28.9 % (35.0-46.0) Mean Corpuscular Volume 85.0 FL (80.0-100.0) Mean Corpuscular Hemoglobin 28.4 PG (27.0-34.0) Mean Corpuscular Hemoglobin Concent 33.4 % (32.0-36.0) Red Cell Distribution Width 23.3 % (11.6-17.2) Platelet Count 257 TH/MM3 (150-450) Mean Platelet Volume 7.3 FL (7.0-11.0) Neutrophils (%) (Auto) 88.5 % (16.0-70.0) Lymphocytes (%) (Auto) 6.6 % (9.0-44.0) Monocytes (%) (Auto) 4.2 % (0.0-8.0) Eosinophils (%) (Auto) 0.2 % (0.0-4.0) Basophils (%) (Auto) 0.5 % (0.0-2.0) Neutrophils # (Auto) 9.9 TH/MM3 (1.8-7.7) Lymphocytes # (Auto) 0.7 TH/MM3 (1.0-4.8) Monocytes # (Auto) 0.5 TH/MM3 (0-0.9) Eosinophils # (Auto) 0.0 TH/MM3 (0-0.4) Basophils # (Auto) 0.1 TH/MM3 (0-0.2) CBC Comment DIFF FINAL Differential Comment Blood Urea Nitrogen 25 MG/DL (7-18) Creatinine 1.33 MG/DL (0.50-1.00) Random Glucose 248 MG/DL (74-106) Total Protein 8.2 GM/DL (6.4-8.2) Calcium Level 13.2 MG/DL (8.5-10.1) Sodium Level 131 MEQ/L (136-145) Potassium Level 5.0 MEQ/L (3.5-5.1) Chloride Level 98 MEQ/L (98-107) Carbon Dioxide Level 25.1 MEQ/L (21.0-32.0) Anion Gap 8 MEQ/L (5-15) Estimat Glomerular Filtration Rate 40 ML/MIN (>89) Protein Corrected Calcium 12.4 MG/DL (8.5-10.1) Total Creatine Kinase 9 U/L (26-192) Troponin I LESS THAN 0.02 NG/ML Prothrombin Time 11.4 SEC (9.8-11.6) Prothromb Time International Ratio 1.1 RATIO Activated Partial Thromboplast Time 25.9 SEC (24.3-30.1) Urine Color YELLOW (YELLW/STRAW) Urine Turbidity CLEAR (CLEAR) Urine pH 5.0 (5.0-8.5) Urine Specific [place] 1.023 (1.002-1.035) Urine Protein TRACE mg/dL (NEG-TRACE) Urine Glucose (UA) 150 mg/dL (NEG) Urine Ketones NEG mg/dL (NEG) Urine Occult Blood NEG (NEG) Urine Nitrite NEG (NEG) Urine Bilirubin NEG (NEG) Urine Urobilinogen LESS THAN 2.0 MG/DL (LESS Urine Leukocyte Esterase SMALL (NEG) Urine RBC 1 /hpf (0-3) Urine WBC 9 /hpf (0-5) Urine Squamous Epithelial Cells <1 /hpf (0-5) Urine Bacteria RARE /hpf (NONE) Urine Hyaline Casts 1 /lpf (RARE) Microscopic Urinalysis Comment CATH-CULTURE IND Pleural Fluid pH 7.5 Pleural Fluid WBC 3690 /MM3 (0-10) Pleural Fluid RBC 2373 /MM3 (0-0) Pleural Fluid Neutrophils 80 % Pleural Fluid Lymphocytes 10 % Pleural Fluid Monocytes 7 % Pleural Fluid Eosinophils 1 % Pleural Fluid Mesothelial Cells 2 % Pleural Fluid Total Protein 5.3 GM/DL Pleural Fluid LDH 220 U/L Pleural Fluid Glucose 193 MG/DL Test 11/09/17 04:28 White Blood Count 10.1 TH/MM3 (4.0-11.0) Red Blood Count 3.21 MIL/MM3 (4.00-5.30) Hemoglobin 9.3 GM/DL (11.6-15.3) Hematocrit 27.2 % (35.0-46.0) Mean Corpuscular Volume 84.7 FL (80.0-100.0) Mean Corpuscular Hemoglobin 29.0 PG (27.0-34.0) Mean Corpuscular Hemoglobin Concent 34.2 % (32.0-36.0) Red Cell Distribution Width 23.3 % (11.6-17.2) Platelet Count 242 TH/MM3 (150-450) Mean Platelet Volume 7.5 FL (7.0-11.0) Neutrophils (%) (Auto) 84.3 % (16.0-70.0) Lymphocytes (%) (Auto) 7.2 % (9.0-44.0) Monocytes (%) (Auto) 7.6 % (0.0-8.0) Eosinophils (%) (Auto) 0.7 % (0.0-4.0) Basophils (%) (Auto) 0.2 % (0.0-2.0) Neutrophils # (Auto) 8.5 TH/MM3 (1.8-7.7) Lymphocytes # (Auto) 0.7 TH/MM3 (1.0-4.8) Monocytes # (Auto) 0.8 TH/MM3 (0-0.9) Eosinophils # (Auto) 0.1 TH/MM3 (0-0.4) Basophils # (Auto) 0.0 TH/MM3 (0-0.2) CBC Comment DIFF FINAL Differential Comment Blood Urea Nitrogen 23 MG/DL (7-18) Creatinine 1.17 MG/DL (0.50-1.00) Random Glucose 172 MG/DL (74-106) Total Protein 7.3 GM/DL (6.4-8.2) Calcium Level 13.0 MG/DL (8.5-10.1) Sodium Level 135 MEQ/L (136-145) Potassium Level 4.5 MEQ/L (3.5-5.1) Chloride Level 99 MEQ/L (98-107) Carbon Dioxide Level 26.4 MEQ/L (21.0-32.0) Anion Gap 10 MEQ/L (5-15) Estimat Glomerular Filtration Rate 46 ML/MIN (>89) Protein Corrected Calcium 12.9 MG/DL (8.5-10.1) Result Diagram: 11/09/1742711/09/17427 Microbiology Microbiology Date/Time Source Procedure Growth Status 11/08/17 15:35 Blood Peripheral Aerobic Blood Culture - Preliminary NO GROWTH IN 1 DAY Resulted 11/08/17 15:35 Blood Peripheral Anaerobic Blood Culture - Preliminary NO GROWTH IN 1 DAY Resulted 11/08/17 15:30 Blood Peripheral Aerobic Blood Culture - Preliminary NO GROWTH IN 1 DAY Resulted 11/08/17 15:30 Blood Peripheral Anaerobic Blood Culture - Preliminary NO GROWTH IN 1 DAY Resulted 11/08/17 16:40 Fluid Pleural Fluid Gram Stain - Final Resulted 11/08/17 16:40 Fluid Pleural Fluid Body Fluid Culture Pending Resulted 11/08/17 15:35 Urine Catheterized Urine Urine Culture Pending Received Imaging Last Impressions Head CT 11/08/17 1304 Signed Impressions: Service Date/Time: Wednesday, November 08, 2017 13:57 - CONCLUSION: 1. No acute intracranial abnormality is identified. 2. Chronic changes include generalized atrophy and periventricular white matter low attenuation characteristic of chronic microvascular ischemia. Trey Blair MD CT Angiography 11/08/17 1304 Signed Impressions: Service Date/Time: Wednesday, November 08, 2017 14:02 - CONCLUSION: No evidence of pulmonary embolism. Multiple bilateral lung nodules. Large left effusion with compressive atelectasis in the left lung base. Right hilar and central mediastinal adenopathy. Trey Johnson MD Chest X-Ray 11/08/17 1207 Signed Impressions: Service Date/Time: Wednesday, November 08, 2017 12:35 - CONCLUSION: 1. Left basilar opacity characteristic of moderate pleural effusion and underlying airspace disease. 2. Clear right lung. 3. Mild cardiomegaly. 4. Right-sided [id number]. Clarke Olmos MD Procedures * 11/08/17 -left-sided thoracentesis . Patient/Family Conference Present at Family Conference: patient, Jabier, daughter Dora. Family Conference Time (mins): 47 Family Conference Location: Bedside Issues Discussed: * Palliative care role, purpose, approach * Additional medical, psychosocial, and spiritual history * Patients general health, functional status, and cognitive changes in the months leading up to the current hospitalization * Patient/family understanding of the current medical problems -metastatic SSC of vulva, progressive physical decline. * Patient/family understanding of prognosis -overall poor prognosis * Patients goals of care as best understood from advance directives and/or conversations and/or values * Current medical treatment options and benefits/burdens of those options * Likely scenarios comparing ongoing aggressive care with a transition to comfort measures only * Questions answered to the best of my ability * Palliative care contact information provided * Risks, benefits and limitations of CPR, intubation and mechanical ventilation given metastatic disease * Hospice philosophy and benefits . Assessment and Plan Disease Oriented Problem List: (1) Squamous cell carcinoma of vulva (2) Lung nodules (3) Pleural effusion (4) Hypercalcemia (5) Aspiration pneumonia (6) Physical deconditioning Symptom Scale: (1) Pain 0-10 Scale: 3 (2) Shortness of breath 0-10 Scale: Unable to quantify (3) Debility 0-10 Scale: Unable to quantify Pertinent Non-Medical Issues Psychosocial: Patient is originally from [facility]. for the past 52 years. Has 1 daughter who lives locally. 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 Spiritual: Gnosticist. Legal: Advance directives completed. Family to provide a copy. Ethical issues impacting care: No ethical issues identified. . Important Contacts Daughter/HCS Dora Galindo Jabier . Prognosis Mrs. Carpenter is a 67-year-old female with a medical history significant for squamous cell carcinoma of vulva with progression of disease status post chemotherapy and radiation. Patient with newly diagnosed lung nodules and hypercalcemia suggestive of metastatic lung and bone cancer. Clinical course complicated by progressive clinical decline with poor performance status, pain, nausea/vomiting and poor nutritional intake. Patient is no longer a candidate for additional systemic therapy given poor performance status and clinical condition. She is a very high risk for further complications, continued decline and . Patient is hospice appropriate should she/family elects comfort directed care. Prognosis of 6 months or less if the illness run its natural course. . Code Status: No Code Plan * CODE STATUS: DNR/DNI. * HEALTHCARE DECISION-MAKING: Patient with very limited participation in medical decision making secondary to confusion, lethargy. Family reports that advance directives have been completed, pending copy. Daughter Dora Galindo reported as healthcare surrogate decision maker. Jabier confirms this information. * GOALS OF CARE: Patient's family wishing for conservative management to include NO code. Hospice philosophy and benefits introduced, family considering transitioning patient to comfort-directed care with hospice given clinical deterioration, progressive metastatic disease, poor performance status and overall poor prognosis. Hospice animal care worker Debbie to meet with family this afternoon. Likely to discharge to hospice care center for symptom management and end-of-life care. * SYMPTOMS: =Pain: Secondary to burden of disease. Patient reported to right shoulder and arm. Patient with significant hypercalcemia, likely metastatic bone disease. One dose of [place] 5/325 given. Palliative care recommends reinstating [place] 3/325 q6hr PRN. = Shortness of breath, secondary to burden of disease, pna, pleural effusion. Status post left-sided thoracentesis. Currently tolerating O2 via nasal cannula. =Debility: Progressive. Worsened during the past month. Likely to continue to worsen given progressive metastatic disease. * Case discussed with hospice animal care worker Debbie. * Palliative care contact information has been provided to patient and family. * Palliative care will continue to follow up for further clarification of goals of care as patient's clinical course continues to evolve. . Time Spent Total Floor Time (mins): 63 (Total time to include review of summarization of available medical records to include prior hospitalization and multiple oncology notes, physical exam, goals of care conversation with patient and family, case discussion with cyanide furnace operator.) >50% Counseling/Coord of Care: Yes Thank you for the opportunity to participate in the care of Ms. Carpenter. Attestation To help prompt me to consider important information that might be impacting today's encounter and assessment, information from prior notes written by myself or my colleagues may have been "brought forward" into today's note. My signature on this note, however, is an attestation that I personally performed the exam, history, and/or decision-making noted today, and, unless otherwise indicated, the interactions with patient, family, and staff as well as the review of records all occurred today. I also attest that the listed assessment and stated plan reflect my best clinical judgment today based on the combination of historical information, prior notes, and today's exam/ interactions. When time spent is documented, it refers only to time spent today by the signer, or if indicated, combined time spent today by collaborating physician/nurse practitioner. Irma Mathis Nov 09, 2017 13:46
--- NOTE | 2017-11-09 14:59 | HHI.DS ---
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 - Malignant neoplasm of vulva, unspecified Status: Chronic (2) Aspiration pneumonia ICD Code: J69.0 - Pneumonitis due to inhalation of food and vomit (3) Pleural effusion ICD Code: J90 - Pleural effusion, not elsewhere classified Status: Acute (4) Hypercalcemia ICD Code: E83.52 - Hypercalcemia Status: Acute Procedures Ultrasound-guided left thoracentesis Brief History - From Admission hx from patient, at bedside, family member at the bedside and ER PA pt is somewhat of poor historian as she is quite tired and does not feel like talking much but is entirely aaox4 answers questions mostly no on review of system per , who himself is elderly, pt went for hydration by Dr Reeves and she was not responding to her nurse and thus advised to come to hospital he reports lately, pt has "quit eating, not drinking much, mostly sleeping at home" she has been weak, and he has been having difficult time taking care of her states that usually their daughter would take care of patient and make sure she eats, goes to appointments however, this time it is his turn to take care of her and she has been home past 3 weeks CBC/BMP: 11/09/17 0428 11/09/17 0428 Significant Findings Laboratory Tests Test 11/08/17 12:24 11/08/17 13:26 11/08/17 15:35 11/08/17 16:40 White Blood Count 11.2 TH/MM3 (4.0-11.0) Red Blood Count 3.40 MIL/MM3 (4.00-5.30) Hemoglobin 9.7 GM/DL (11.6-15.3) Hematocrit 28.9 % (35.0-46.0) Red Cell Distribution Width 23.3 % (11.6-17.2) Neutrophils (%) (Auto) 88.5 % (16.0-70.0) Lymphocytes (%) (Auto) 6.6 % (9.0-44.0) Neutrophils # (Auto) 9.9 TH/MM3 (1.8-7.7) Lymphocytes # (Auto) 0.7 TH/MM3 (1.0-4.8) Blood Urea Nitrogen 25 MG/DL (7-18) Creatinine 1.33 MG/DL (0.50-1.00) Random Glucose 248 MG/DL (74-106) Calcium Level 13.2 MG/DL (8.5-10.1) Sodium Level 131 MEQ/L (136-145) Estimat Glomerular Filtration Rate 40 ML/MIN (>89) Protein Corrected Calcium 12.4 MG/DL (8.5-10.1) Total Creatine Kinase 9 U/L (26-192) Troponin I LESS THAN 0.02 NG/ML Urine Glucose (UA) 150 mg/dL (NEG) Urine Leukocyte Esterase SMALL (NEG) Urine WBC 9 /hpf (0-5) Urine Bacteria RARE /hpf (NONE) Pleural Fluid WBC 3690 /MM3 (0-10) Pleural Fluid RBC 2373 /MM3 (0-0) Test 11/09/17 04:28 Red Blood Count 3.21 MIL/MM3 (4.00-5.30) Hemoglobin 9.3 GM/DL (11.6-15.3) Hematocrit 27.2 % (35.0-46.0) Red Cell Distribution Width 23.3 % (11.6-17.2) Neutrophils (%) (Auto) 84.3 % (16.0-70.0) Lymphocytes (%) (Auto) 7.2 % (9.0-44.0) Neutrophils # (Auto) 8.5 TH/MM3 (1.8-7.7) Lymphocytes # (Auto) 0.7 TH/MM3 (1.0-4.8) Blood Urea Nitrogen 23 MG/DL (7-18) Creatinine 1.17 MG/DL (0.50-1.00) Random Glucose 172 MG/DL (74-106) Calcium Level 13.0 MG/DL (8.5-10.1) Sodium Level 135 MEQ/L (136-145) Estimat Glomerular Filtration Rate 46 ML/MIN (>89) Protein Corrected Calcium 12.9 MG/DL (8.5-10.1) Imaging Last Impressions Head CT 11/08/17 1304 Signed Impressions: Service Date/Time: Wednesday, November 08, 2017 13:57 - CONCLUSION: 1. No acute intracranial abnormality is identified. 2. Chronic changes include generalized atrophy and periventricular white matter low attenuation characteristic of chronic microvascular ischemia. Trey Blair MD CT Angiography 11/08/17 1304 Signed Impressions: Service Date/Time: Wednesday, November 08, 2017 14:02 - CONCLUSION: No evidence of pulmonary embolism. Multiple bilateral lung nodules. Large left effusion with compressive atelectasis in the left lung base. Right hilar and central mediastinal adenopathy. Trey Johnson MD Chest X-Ray 11/08/17 1207 Signed Impressions: Service Date/Time: Wednesday, November 08, 2017 12:35 - CONCLUSION: 1. Left basilar opacity characteristic of moderate pleural effusion and underlying airspace disease. 2. Clear right lung. 3. Mild cardiomegaly. 4. Right-sided [id number]. Clarke Olmos MD PE at Discharge GENERAL: NAD SKIN: Warm and dry. HEAD: Normocephalic. EYES: No scleral icterus. No injection or drainage. NECK: Supple, trachea midline. No JVD or lymphadenopathy. CARDIOVASCULAR: Regular rate and rhythm without murmurs, gallops, or rubs. RESPIRATORY: Breath sounds decrease bilaterally. No accessory muscle use. GASTROINTESTINAL: Abdomen soft, non-tender, nondistended. MUSCULOSKELETAL: No cyanosis, or edema. BACK: Nontender without obvious deformity. No CVA tenderness. Hospital Course Prior to discharge to hospice, the patient was treated for Squamous carcinoma of vulva with metastasis Appreciate input from [employer] Aspiration pneumonia Treated with IV cefepime Maintain oxygen saturation above 92% Metabolic encephalopathy From above processes Left pleural effusion Status post ultrasound-guided left thoracentesis 11/08/17 Other chronic medical conditions Continued on her current medical management Pt Condition on Discharge: Guarded Discharge Disposition: Hospice/Med Facility Discharge Time: > 30 minutes Discharge Instructions DIET: Follow Instructions for: As Tolerated, No Restrictions Activities you can perform: Regular-No Restrictions Continued Medications: Allopurinol (Allopurinol) 300 Mg Tab 450 MG PO DAILY for Gout, #30 TAB 0 Refills Alprazolam (Alprazolam) 0.5 Mg Tab 0.5 MG PO Q6H PRN for ANXIETY, TAB 0 Refills Carvedilol (Carvedilol) 6.25 Mg Tab 6.25 MG PO BID, #60 TAB 0 Refills Insulin Aspart Inj (Novolog Inj) 1,000 Unit/10 Ml Vial UNITS SQ TID for Blood Sugar Management, #1 INJECTION 0 Refills SLIDING SCALE DIRECTED Metformin (Metformin) 1,000 Mg Tab 1000 MG PO BIDPC for Blood Sugar Management, #60 TAB 0 Refills Maxim Stark MD Nov 09, 2017 14:59
[2017-11-09 16:00] VITALS: BP 149/73; PULSE 87; RESP 16; TEMP 97.2; O2SAT 95
--- NOTE | 2017-11-10 08:33 | RADRPT ---
EXAM DATE/TIME: 11/08/2017 16:19 [facility] COMPARISON: No previous studies available for comparison. INDICATIONS : Left pleural effusion. MEDICAL HISTORY : Hypertension. Cervical laminectomy. Renal disease. Vulvar cancer. Diabetes. SURGICAL HISTORY : Kidney stone removal. Right chest port. Heart cathether. ENCOUNTER: Initial ACUITY: 1 day PAIN SCORE: 0/10 LOCATION: Left chest FLUID: Total volume of 650 cc of cloudy, yellow fluid was removed. Fluid was discarded. Thoracentesis was therapeutic only. TECHNIQUE: 1. Ultrasound guidance for thoracentesis. 2. Thoracentesis. The risks, benefits, and alternatives to ultrasound guided thoracentesis were explained to the patien t in lay simple terms, including the risk of bleeding and infection. Written and verbal informed con sent was obtained. Appropriate area for thoracentesis was marked under ultrasound guidance with the patient in the uprig ht position. Overlying skin was prepped and draped in the usual sterile fashion and with local anest hetic, a dermatotomy was made with an 11 blade scalpel. A 6 Russian thoracentesis catheter was placed in the pleural space and fluid was removed. Catheter was then removed and a sterile dressing applie d. There were no immediate complications. The patient tolerated the procedure well and the left the ultrasound suite in stable condition. Chest radiograph is to be obtained. CONCLUSION: Uncomplicated ultrasound guided thoracentesis. Mika Szymanski MD FACR on November 10, 2017 at 8:30 Board Certified Radiologist. This report was verified electronically.
== END 2017-11-09 18:15 | disposition hospice, inpatient (51) | DRG 754 ==
LOC: NEPE 11:54 → NEDA 15:15 → N07A 20:06
PROVIDERS: ADMIT Hospitalist; ATTEND Hospitalist
PROC: 0W9B3ZZ Drainage of Left Pleural Cavity, Percutaneous Approach (ICD-10-PCS; principal; 2017-11-08)
DX: C51.9 Malignant neoplasm of vulva, unspecified (principal); J69.0 Pneumonitis due to inhalation of food and vomit; G93.41 Metabolic encephalopathy; J90 Pleural effusion, not elsewhere classified; C78.01 Secondary malignant neoplasm of right lung; C78.02 Secondary malignant neoplasm of left lung; E11.22 Type 2 diabetes mellitus with diabetic chronic kidney disease; N18.9 Chronic kidney disease, unspecified; E83.52 Hypercalcemia; E87.1 Hypo-osmolality and hyponatremia; M10.9 Gout, unspecified; E87.5 Hyperkalemia; R62.7 Adult failure to thrive; Z66 Do not resuscitate; Z51.5 Encounter for palliative care; Z92.3 Personal history of irradiation; Z92.21 Personal history of antineoplastic chemotherapy; Z87.442 Personal history of urinary calculi
CPT/HCPCS: 32555; 70450; 71045; 71046; 71275; 80048; 81001; 82550; 82945; 82948; 83615; 83986; 84155; 84157; 84484; 85025; 85610; 85730; 87040; 87070; 87077; 87086; 87186; 87205; 88112; 88305; 89051; 93005; 96360; 96365; J0692; J1642; J1644; J7030; Q9967